=== PATIENT | female | born 1990 | race Caucasian/White ===

== ENCOUNTER 2019-01-17 17:21 | Emergency (ER) | payer OTHER ==
[~2019-01-17] VITALS: Ht 175.3 cm; Wt 73.0 kg
[2019-01-17] MEDS ORDERED: ONDANSETRON 2MG/ML, 2ML ONE (17:38)
--- NOTE | 2019-01-17 17:44 | NUR ---
PT BIB EMS FO OVERDISE OF NARCAN. PT STATES SHE TOOK LIQUID METHADONE FROM SOMEONE. PER BOYFRIEND AT BEDSIDE, PT BECAME LETHARGIC. EMS ON SCENE ADMINISTERED NARCAN INTRANASAL 2 MG. THEN 1 MG IV IN THE FIELD. PT BECAME ALERT. EN ROUTE PT BECAME MORE LETHARGIC AND ANOTHER 0.5 MG NARCAN WAS GIVEN IV APPROX 20 MINS BOOT AND SADDLE REPAIR PERSON. PT ARRIVES A&OX4, NEURO INTACT. BOYFRIEND AT BEDSIDE. CP MONIOTRS IN PLACE. CALL LIGHT IN REACH. WILL CONTINUE T0 MONITOR CLOSELY FOR SIGNS OF DECREASING LOC.
[2019-01-17 17:55] LABS: BASOPHILS # (AUTO) 0.03 x10^3/uL (0-0.1); BASOPHILS % (AUTO) 0 % (0-1); EOSINOPHILS % (AUTO) 0 % (1-7); LYMPHOCYTES # (AUTO) 0.99 x10^3/uL (1-3.4); LYMPHOCYTES % (AUTO) 6 % (22-44); MD NO; MEAN CORPUSCULAR HEMOGLOBIN 33.7 pg (27.0-34.8); MEAN CORPUSCULAR HGB CONC 33.2 g/dL (32.4-35.8); MEAN CORPUSCULAR VOLUME 101.5 fL (80-100); MEAN PLATELET VOLUME 7.4 fL (7.4-10.4); MONOCYTES # (AUTO) 0.76 x10^3/uL (0.2-0.8); MONOCYTES % (AUTO) 5 % (2-9); NEUTROPHILS # (AUTO) 14.84 x10^3/uL (1.8-6.8); NEUTROPHILS % (AUTO) 89 % (42-75); PLATELET COUNT 336 x10^3/uL (130-400); RED BLOOD COUNT 3.67 x10^6/uL (3.82-5.3); RED CELL DISTRIBUTION WIDTH 13.1 % (9.6-15.2)
[2019-01-17] MEDS ORDERED: ONDANSETRON 2MG/ML, 2ML IVPush ONE (18:00)
--- NOTE | 2019-01-17 18:03 | NUR ---
BEDSIDE REPORT FROM TANA MOORE, PT PLACED ON ETCO2 MONITOR
[2019-01-17 18:07] LABS: ANION GAP 13 mmol/L (5-15); CALCIUM 8.2 mg/dL (8.5-10.1); CHLORIDE 110 mmol/L (98-107); CREATININE 0.73 mg/dL (0.55-1.02)
--- NOTE | 2019-01-17 18:38 | NUR ---
PT SLEEPING IN GURNEY, REMOVED OXYGEN AND DROPPED O2 SAT% TO 84, REPLACED O2 AND EDUCATED PT AND PARTNER IN ROOM TO LEAVE ON. VS OTHERWISE STABLE. PT STILL DROWSY. PARTNER AT BEDSIDE, CALL LIGHT WITHIN REACH
--- NOTE | 2019-01-17 19:44 | NUR ---
PT SLEEPING IN GURNEY, OXYGEN REMOVED AGAIN, RA SAT 88%. PT STATES SHE IS FEELING BETTER. BOYFRIEND AT BEDSIDE WATCHING TV
--- NOTE | 2019-01-17 20:43 | NUR ---
PT STATES SHE IS FEELING BETTER, O2 REMOVED TO SEE HOW PT DOES ON RA.
[2019-01-17] MEDS ORDERED: ONDANSETRON ODT 4 MG ONE (20:55)
--- NOTE | 2019-01-17 21:38 | NUR ---
PT RESTING IN GURNEY, AOX4, AWAKE AND WATCHING TV. DOING FINE ON RA. PER MD WATCH UNTIL AFTER 10PM
[2019-01-17 23:19] VITALS: BP 121/74
== END 2019-01-17 23:21 | disposition home or self-care (01) ==
LOC: ED 17:42
DX: T40.3X1A Poisoning by methadone, accidental (unintentional), initial encounter (principal); Y92.89 Other specified places as the place of occurrence of the external cause
CPT/HCPCS: 36415; 80048; 82040; 85025; 93005; 99284

== ENCOUNTER 2019-09-01 09:09 | Outpatient (CLI) | payer OTHER ==
[~2019-09-01 09:09] MED LIST: IBUP-1623 PO; MAGN400O7 PO; ONDA4TAB7 PO; OXYC-302 PO; OXYC-432 PO
[2019-09-01] MEDS ORDERED: OMNIPAQUE 350 MG/ML, 100ML BOTTLE ONE (16:08)
[2019-09-18] MEDS ORDERED: [UNRECOGNIZED DRUG - OTHER] PO (10:37)
[2019-09-18] MEDS ORDERED: [UNRECOGNIZED DRUG - REMARK] PO (10:37)
[2019-09-18] MEDS ORDERED: URIN1STR71 PO (10:37)
[2019-09-18] MEDS ORDERED: GABA300C10 PO (10:37)
[2019-09-18] MEDS ORDERED: tylenol PO (10:37)
[2019-11-02] MEDS ORDERED: APIX5TAB PO (15:35)
[2019-11-02] MEDS ORDERED: CEFD300C37 PO (15:35)
== END 2019-09-01 23:59 | disposition home or self-care (01) ==
LOC: CFH 09:09
PROVIDERS: ATTEND Internal Medicine Gastroenterology
DX: C7A.00 Malignant carcinoid tumor of unspecified site (principal); N13.30 Unspecified hydronephrosis; R59.0 Localized enlarged lymph nodes; R10.30 Lower abdominal pain, unspecified; R11.2 Nausea with vomiting, unspecified; R63.4 Abnormal weight loss; K59.03 Drug induced constipation; D75.89 Other specified diseases of blood and blood-forming organs
CPT/HCPCS: 71260; 74177; Q9967

== ENCOUNTER 2019-09-12 12:29 | Emergency (ER) | payer OTHER ==
[~2019-09-12] VITALS: Ht 180.3 cm; Wt 67.7 kg
[2019-09-12 12:32] VITALS: BP 144/98
--- NOTE | 2019-09-12 12:54 | NUR ---
ASSUMED CARE OF PATIENT. PATIENT REPORTS PELVIC PAIN AND BILATERAL FLANK PAIN. PT WAS RECENTLY DIAGNOSED WITH BLADDER CANCER. PT HAS BEEN ON PERCOCET BUT RAN OUT. PT IS TO SEE A PAIN DOCTOR AND WANTS PAIN MEDS FOR HOME UNTIL SHE CAN GET IN TO SEE HER DOCTOR. FAMILY AT BEDSIDE. VS STABLE WILL CONTINUE TO MONITOR.
== END 2019-09-12 13:29 | disposition home or self-care (01) ==
LOC: ED 13:17
DX: C80.1 Malignant (primary) neoplasm, unspecified (principal); R10.30 Lower abdominal pain, unspecified; Z90.49 Acquired absence of other specified parts of digestive tract
CPT/HCPCS: 99283

== ENCOUNTER → 2019-09-18 | Outpatient (CLI) | payer OTHER ==
[~2019-09-18] MED LIST changes: +GABA300C10 PO; +URIN1STR71 PO; +[UNRECOGNIZED DRUG - OTHER] PO; +[UNRECOGNIZED DRUG - REMARK] PO; +tylenol PO
[2019-09-18 10:42] LABS: INTERNATIONAL NORMALIZED RATIO 1.01 (0.93-1.1); PROTHROMBIN TIME 10.7 Seconds (9.6-11.5)
[2019-09-18 10:46] LABS: ANION GAP 7 mmol/L (5-15); CHLORIDE 106 mmol/L (98-107)
[2019-09-18 10:47] LABS: CREATININE 0.56 mg/dL (0.55-1.02)
[2019-09-18 11:01] LABS: MICROSCOPIC INDICATED
[2019-09-18 11:11] LABS: BASOPHILS # (AUTO) 0.05 x10^3/uL (0-0.1); BASOPHILS % (AUTO) 1 % (0-1); EOSINOPHILS # (AUTO) 0.01 x10^3/uL (0-0.4); EOSINOPHILS % (AUTO) 0 % (1-7); LYMPHOCYTES # (AUTO) 1.14 x10^3/uL (1-3.4); LYMPHOCYTES % (AUTO) 14 % (22-44); MD NO; MEAN CORPUSCULAR HEMOGLOBIN 33.1 pg (27.0-34.8); MEAN CORPUSCULAR HGB CONC 32.5 g/dL (32.4-35.8); MEAN CORPUSCULAR VOLUME 102.1 fL (80-100); MEAN PLATELET VOLUME 7.6 fL (7.4-10.4); MONOCYTES # (AUTO) 0.65 x10^3/uL (0.2-0.8); MONOCYTES % (AUTO) 8 % (2-9); NEUTROPHILS # (AUTO) 6.58 x10^3/uL (1.8-6.8); NEUTROPHILS % (AUTO) 78 % (42-75); PLATELET COUNT 452 x10^3/uL (130-400); RED BLOOD COUNT 4.17 x10^6/uL (3.82-5.3); RED CELL DISTRIBUTION WIDTH 14.8 % (9.6-15.2)
== END | disposition home or self-care (01) ==
LOC: STAR 09:33
PROVIDERS: ATTEND Student in an Organized Health Care Education/Training Program
DX: Z01.812 Encounter for preprocedural laboratory examination (principal); N32.89 Other specified disorders of bladder
CPT/HCPCS: 36415; 80048; 81001; 85025; 85610; 87086

== ENCOUNTER 2019-09-23 13:31 | Day surgery (SDC) | payer OTHER ==
[~2019-09-23] VITALS: Ht 180.3 cm; Wt 64.0 kg
[2019-09-23 14:04] VITALS: BP 148/107
[2019-09-23] MEDS ORDERED: LACTATED RINGERS 1,000 ML IV SCH (14:04)
[2019-09-23 14:25] LABS: HCG UR SG 1.011 (1.003-1.030)
[2019-09-23] MEDS ORDERED: LIDOCAINE-MPF 1%, 2ML INFIL ONE (14:30)
[2019-09-23] MEDS ORDERED: ACETAMINOPHEN 500 MG TABLET PO ONE (14:30)
[2019-09-23] MEDS ORDERED: GABAPENTIN 300 MG CAPSULE PO ONE ×2 (14:30)
[2019-09-23] MEDS ORDERED: GABAPENTIN 300 MG CAPSULE ONE (14:36)
[2019-09-23] MEDS ORDERED: FENTANYL PF 250 MCG/5ML ONE (15:09)
[2019-09-23] MEDS ORDERED: MIDAZOLAM 1 MG/ML, 2ML ONE (15:09)
[2019-09-23] MEDS ORDERED: LIDOCAINE GEL 2%, 5ML ONE (15:12)
[2019-09-23] MEDS ORDERED: FENTANYL PF 100 MCG/2ML ONE ×4 (15:53→18:01)
[2019-09-23] MEDS ORDERED: PROMETHAZINE 25 MG/ML, 1ML IV PRN (16:00)
[2019-09-23] MEDS ORDERED: HALOPERIDOL 5 MG/ML IV PRN (16:00)
[2019-09-23] MEDS ORDERED: OXYcodone 5 MG/5 ML ORAL.SOL UDC PO PRN (16:00)
[2019-09-23] MEDS ORDERED: hydrALAzine 20 MG/ML, 1ML IV PRN (16:00)
[2019-09-23] MEDS ORDERED: ESMOLOL 100 MG/10 ML ONE (16:39)
[2019-09-23] MEDS ORDERED: OPIUM/BELLADONNA SUPP.RECT 16.2-60 MG ONE (16:53)
[2019-09-23] MEDS ORDERED: SUCCINYLCHOLINE 20 MG/ML, 10ML ONE (17:18)
[2019-09-23] MEDS ORDERED: NEOSTIGMINE 1 MG/ML, 10ML ONE (17:18)
[2019-09-23] MEDS ORDERED: CEFAZOLIN 1,000 MG ONE (17:18)
[2019-09-23] MEDS ORDERED: ROCURONIUM 10MG/ML,5ML ONE (17:18)
[2019-09-23] MEDS ORDERED: ONDANSETRON 2MG/ML, 2ML ONE (17:18)
[2019-09-23] MEDS ORDERED: GLYCOPYRROLATE 0.2MG/1ML, 5ML ONE (17:18)
[2019-09-23] MEDS ORDERED: DEXAMETHASONE 4 MG/ML, 1ML ONE (17:18)
[2019-09-23] MEDS ORDERED: PROPOFOL 10 MG/ML, 20ML ONE (17:18)
[2019-09-23] MEDS ORDERED: DIAZEPAM 5 MG/ML, 2ML ONE (17:23)
[2019-09-23] MEDS ORDERED: HYDROmorphone 2 MG/ML, 1ML ONE ×2 (17:23→18:02)
[2019-09-23] MEDS ORDERED: OXYcodone 5 MG/5 ML ORAL.SOL UDC ONE (17:24)
[2019-09-23] MEDS: LABETALOL 5MG/ML, 20ML IV PRN ×2 (17:27→17:50)
[2019-09-23] MEDS: FENTANYL PF 100 MCG/2ML IV PRN ×3 (17:28→18:06)
[2019-09-23] MEDS: HYDROmorphone 2 MG/ML, 1ML IVPush PRN ×4 (17:28→17:59)
[2019-09-23] MEDS ORDERED: MEPERIDINE/PF 25MG/ML,1ML ONE ×2 (17:29→18:01)
[2019-09-23] MEDS: MEPERIDINE/PF 25MG/ML,1ML IVPush PRN ×2 (17:30→18:04)
[2019-09-23] MEDS: DIAZEPAM 5 MG/ML, 2ML IVPush PRN ×2 (17:33→17:46)
[2019-09-23] MEDS ORDERED: hydrALAzine 20 MG/ML, 1ML ONE (18:14)
[2019-09-23] MEDS ORDERED: OMNIPAQUE 350 MG/ML, 50 ML BOTTLE ONE (18:23)
== END 2019-09-23 19:55 | disposition home or self-care (01) ==
LOC: OR 13:31 → 4NE 18:55 → OR 19:55
PROVIDERS: ATTEND Student in an Organized Health Care Education/Training Program
DX: R31.0 Gross hematuria (principal); C67.9 Malignant neoplasm of bladder, unspecified; C79.9 Secondary malignant neoplasm of unspecified site; N13.30 Unspecified hydronephrosis; N32.89 Other specified disorders of bladder; Z72.89 Other problems related to lifestyle
CPT/HCPCS: 52240; 52332; 74420; 81025; 88305; 88307; C2617; J0330; J0360; J0690; J1100; J1170; J2175; J2250; J2405; J2704; J2710; J3010; J3360; J7120; Q9967; G0378

== ENCOUNTER 2019-10-09 12:19 | Outpatient (CLI) | payer OTHER ==
[2019-10-09] MEDS ORDERED: ACET-1600 PO (12:58)
[2019-10-09] MEDS ORDERED: IBUP-1223 PO (12:58)
== END 2019-10-09 23:59 | disposition home or self-care (01) ==
LOC: STAR 12:19
PROVIDERS: ATTEND Internal Medicine
DX: Z02.9 Encounter for administrative examinations, unspecified (principal)

== ENCOUNTER 2019-10-16 09:01 | Day surgery (SDC) | payer OTHER ==
[~2019-10-16] VITALS: Ht 175.3 cm; Wt 59.9 kg
[~2019-10-16 09:01] MED LIST changes: +ACET-1600 PO; +IBUP-1223 PO
[2019-10-16 09:23] VITALS: BP 137/94
[2019-10-16] MEDS ORDERED: OXYC-307 PO (09:27)
[2019-10-16] MEDS ORDERED: LACTATED RINGERS 1,000 ML IV SCH (09:41)
[2019-10-16 09:46] LABS: HCG UR SG 1.013 (1.003-1.030)
[2019-10-16] MEDS ORDERED: MIDAZOLAM 1 MG/ML, 2ML ONE (10:52)
[2019-10-16] MEDS ORDERED: FENTANYL PF 100 MCG/2ML ONE ×4 (10:57→11:55)
[2019-10-16] MEDS ORDERED: LABETALOL 5MG/ML, 20ML IV PRN (11:00)
[2019-10-16] MEDS ORDERED: HALOPERIDOL 5 MG/ML IV PRN (11:00)
[2019-10-16] MEDS ORDERED: HYDROmorphone 2 MG/ML, 1ML IVPush PRN (11:00)
[2019-10-16] MEDS ORDERED: hydrALAzine 20 MG/ML, 1ML IV PRN (11:00)
[2019-10-16] MEDS ORDERED: OXYcodone 5 MG/5 ML ORAL.SOL UDC PO PRN (11:00)
[2019-10-16] MEDS ORDERED: MEPERIDINE/PF 25MG/ML,1ML IVPush PRN (11:00)
[2019-10-16] MEDS ORDERED: PROMETHAZINE 25 MG/ML, 1ML IV PRN (11:00)
[2019-10-16] MEDS ORDERED: FENTANYL PF 100 MCG/2ML IV PRN (11:00)
[2019-10-16] MEDS ORDERED: ONDANSETRON 2MG/ML, 2ML ONE (11:42)
[2019-10-16] MEDS ORDERED: SUCCINYLCHOLINE 20 MG/ML, 10ML ONE (11:42)
[2019-10-16] MEDS ORDERED: NEOSTIGMINE 1 MG/ML, 10ML ONE (11:42)
[2019-10-16] MEDS ORDERED: CEFAZOLIN 1,000 MG ONE (11:42)
[2019-10-16] MEDS ORDERED: ROCURONIUM 10MG/ML,5ML ONE (11:42)
[2019-10-16] MEDS ORDERED: DEXAMETHASONE 4 MG/ML, 1ML ONE (11:42)
[2019-10-16] MEDS ORDERED: GLYCOPYRROLATE 0.2MG/1ML, 5ML ONE (11:42)
[2019-10-16] MEDS ORDERED: PROPOFOL 10 MG/ML, 20ML ONE (11:42)
[2019-10-16] MEDS ORDERED: OXYcodone 5 MG/5 ML ORAL.SOL UDC ONE (11:56)
== END 2019-10-16 13:45 | disposition home or self-care (01) ==
LOC: OUT 09:01
PROVIDERS: ATTEND Internal Medicine
DX: R59.0 Localized enlarged lymph nodes (principal); C77.1 Secondary and unspecified malignant neoplasm of intrathoracic lymph nodes; C67.9 Malignant neoplasm of bladder, unspecified; F17.210 Nicotine dependence, cigarettes, uncomplicated; Z79.891 Long term (current) use of opiate analgesic; Z79.899 Other long term (current) drug therapy
CPT/HCPCS: 31652; 71045; 81025; 88172; 88173; 88305; J0330; J0690; J1100; J2250; J2405; J2704; J3010; J7120; 31625; J2710

== ENCOUNTER 2019-10-27 07:33 | Day surgery (SDC) | payer OTHER ==
[~2019-10-27] VITALS: Ht 175.3 cm; Wt 60.0 kg
[~2019-10-27 07:33] MED LIST changes: +OXYC-307 PO
[2019-10-27 08:04] VITALS: BP 132/89
[2019-10-27] MEDS ORDERED: CEFAZOLIN PMX 1GM/50ML 50 ML ONE (08:08)
[2019-10-27] MEDS ORDERED: LIDOCAINE 1%, 20ML ONE (09:32)
[2019-10-27] MEDS ORDERED: FENTANYL PF 100 MCG/2ML ONE (09:38)
[2019-10-27] MEDS ORDERED: MIDAZOLAM 1 MG/ML, 5ML ONE ×2 (09:38→09:39)
[2019-10-27] MEDS ORDERED: FLUMAZENIL 0.1 MG/1 ML, 5ML ONE (09:39)
[2019-10-27] MEDS ORDERED: NALOXONE 1 MG/ML, 2ML ONE (09:39)
[2019-10-27] MEDS ORDERED: DIPHENHYDRAMINE 50 MG/ML, 1ML ONE (10:32)
[2019-10-27] MEDS ORDERED: SODIUM CHLORIDE 0.9% 1,000 ML IV SCH (11:41)
[2019-10-27] MEDS ORDERED: CEFAZOLIN PMX 1GM/50ML 50 ML IV ONE (12:00)
[2019-10-27] MEDS ORDERED: ONDA4TAB7 PO (17:38)
[2019-10-27] MEDS ORDERED: PROC10TA2 PO (17:38)
== END 2019-10-27 15:15 | disposition home or self-care (01) ==
LOC: OUT 07:33
PROVIDERS: ATTEND Internal Medicine
DX: C48.2 Malignant neoplasm of peritoneum, unspecified (principal); F17.210 Nicotine dependence, cigarettes, uncomplicated; Z79.899 Other long term (current) drug therapy; Z72.89 Other problems related to lifestyle; Z83.3 Family history of diabetes mellitus
CPT/HCPCS: 36561; 71045; 77001; 99156; 99157; J0690; J1200; J1642; J2250; J3010; J7030; J2310

== ENCOUNTER 2019-11-08 07:30 | Emergency (ER) | payer OTHER ==
[~2019-11-08] VITALS: Ht 172.7 cm; Wt 62.0 kg
[~2019-11-08 07:30] MED LIST changes: +APIX5TAB PO; +CEFD300C37 PO; +PROC10TA2 PO
--- NOTE | 2019-11-08 07:48 | NUR ---
PT DENIES CP, SOB. PT REPORTS THAT HER HR IS USUALLY FAST AND SHE IS ON MEDICINE FOR IT BUT HAS NOT TAKEN IT YET. PT DENIES FEVERS OR CHILLS.
--- NOTE | 2019-11-08 08:05 | NUR ---
PT BROUGHT BACK FROM TRIAGE WITH CHIEF COMPLAINT OF RIGHT NEPHROSTOMY LEAKING. PLACED ABOUT ONE WEEK AGO AND PT STATES SHE IS UNSURE OF CARE NEEDED FOR THEM. HASNT HAD A FOLLOW UP WITH UROLOGIST YET. PT DENIES CP, N/V, COUGH, FEVER.
--- NOTE | 2019-11-08 08:30 | NUR ---
URINE COLLECTED AND SENT TO LAB. PT RESTING IN BED
[2019-11-08 08:32] LABS: BASOPHILS # (AUTO) 0.09 x10^3/uL (0-0.1); BASOPHILS % (AUTO) 1 % (0-1); EOSINOPHILS # (AUTO) 0.07 x10^3/uL (0-0.4); EOSINOPHILS % (AUTO) 1 % (1-7); LYMPHOCYTES # (AUTO) 1.47 x10^3/uL (1-3.4); LYMPHOCYTES % (AUTO) 16 % (22-44); MD NO; MEAN CORPUSCULAR HEMOGLOBIN 30.9 pg (27.0-34.8); MEAN CORPUSCULAR HGB CONC 32.7 g/dL (32.4-35.8); MEAN CORPUSCULAR VOLUME 94.5 fL (80-100); MEAN PLATELET VOLUME 6.5 fL (7.4-10.4); MONOCYTES # (AUTO) 0.14 x10^3/uL (0.2-0.8); MONOCYTES % (AUTO) 2 % (2-9); NEUTROPHILS # (AUTO) 7.61 x10^3/uL (1.8-6.8); NEUTROPHILS % (AUTO) 81 % (42-75); PLATELET COUNT 449 x10^3/uL (130-400); RED BLOOD COUNT 2.99 x10^6/uL (3.82-5.3); RED CELL DISTRIBUTION WIDTH 16.5 % (9.6-15.2)
[2019-11-08 08:36] LABS: ANION GAP 11 mmol/L (5-15); CALCIUM 8.5 mg/dL (8.5-10.1); CHLORIDE 96 mmol/L (98-107); CREATININE 1.89 mg/dL (0.55-1.02)
--- NOTE | 2019-11-08 09:23 | NUR ---
PT RESTING IN BED, CALL LIGHT IN REACH
[2019-11-08 09:40] LABS: CULTURE INDICATED? YES; MICROSCOPIC INDICATED
[2019-11-08 09:41] LABS: CULTURE INDICATED? YES; MICROSCOPIC INDICATED
--- NOTE | 2019-11-08 09:55 | NUR ---
ABISAI YOO AT BEDSIDE TO DISCUSS POC DISCHARGE INSTRUCTIONS REVIEWED Addendum: 11/08/19 at 0959 by [email or web address] NO DISCHARGE
[2019-11-08] MEDS ORDERED: VANCOMYCIN PER PHARMACY MC ONE (10:00)
[2019-11-08] MEDS ORDERED: PIPERACILLIN/TAZO/PMX 3.375GM 50 ML IVPB ONE (10:00)
[2019-11-08] MEDS ORDERED: PIPERACILLIN/TAZO/PMX 3.375GM 0 ML ONE (10:09)
[2019-11-08] MEDS ORDERED: VANCOMYCIN 1,500 MG in SODIUM CHLORIDE 0.9% 250 ML IV ONE (10:30)
[2019-11-08] MEDS ORDERED: SODIUM CHLORIDE 0.9% 1,000ML IVBOLUS ONE (10:30)
--- NOTE | 2019-11-08 10:30 | NUR ---
PT REFUSING ABX, ABISAI YOO NOTIFIED. WILL DISCUSS POC WITH PT.
[2019-11-08 11:03] VITALS: BP 104/73
== END 2019-11-08 11:06 | disposition home or self-care (01) ==
LOC: ED 10:12 → UNDOADMIN 10:30 → EDIP 10:30 → ED 11:06
DX: C67.9 Malignant neoplasm of bladder, unspecified (principal); C78.00 Secondary malignant neoplasm of unspecified lung; T83.032A Leakage of nephrostomy catheter, initial encounter; N17.9 Acute kidney failure, unspecified; E87.1 Hypo-osmolality and hyponatremia; N39.0 Urinary tract infection, site not specified; R00.0 Tachycardia, unspecified; I51.7 Cardiomegaly; D64.9 Anemia, unspecified; Y92.89 Other specified places as the place of occurrence of the external cause
CPT/HCPCS: 36415; 80048; 81001; 83605; 85025; 87040; 87086; 93005; 99284

== ENCOUNTER → 2019-12-01 | Outpatient (CLI) | payer OTHER | END | disposition home or self-care (01) | LOC: WOUND 08:05 | PROVIDERS: ATTEND Nurse Practitioner Family | DX: L97.512 Non-pressure chronic ulcer of other part of right foot with fat layer exposed (principal); L98.492 Non-pressure chronic ulcer of skin of other sites with fat layer exposed; I10 Essential (primary) hypertension; C67.9 Malignant neoplasm of bladder, unspecified; F17.210 Nicotine dependence, cigarettes, uncomplicated; Z79.899 Other long term (current) drug therapy | CPT/HCPCS: 11042; 11045; 99215 ==

== ENCOUNTER 2019-12-08 10:02 | Outpatient (CLI) | payer OTHER | END 2019-12-08 23:59 | disposition home or self-care (01) | LOC: WOUND 10:02 | PROVIDERS: ATTEND Nurse Practitioner Family | DX: L97.512 Non-pressure chronic ulcer of other part of right foot with fat layer exposed (principal); L98.492 Non-pressure chronic ulcer of skin of other sites with fat layer exposed; I10 Essential (primary) hypertension; C67.9 Malignant neoplasm of bladder, unspecified; F17.210 Nicotine dependence, cigarettes, uncomplicated; Z79.899 Other long term (current) drug therapy | CPT/HCPCS: 97597; 97598 ==

== ENCOUNTER → 2019-12-15 | Outpatient (CLI) | payer OTHER | END | disposition home or self-care (01) | LOC: WOUND 09:44 | PROVIDERS: ATTEND Internal Medicine Infectious Disease | DX: L98.495 Non-pressure chronic ulcer of skin of other sites with muscle involvement without evidence of necrosis (principal); S90.821D Blister (nonthermal), right foot, subsequent encounter; I10 Essential (primary) hypertension; C67.9 Malignant neoplasm of bladder, unspecified; F17.210 Nicotine dependence, cigarettes, uncomplicated; F12.90 Cannabis use, unspecified, uncomplicated; E46 Unspecified protein-calorie malnutrition; Z68.21 Body mass index [BMI] 21.0-21.9, adult; Z85.028 Personal history of other malignant neoplasm of stomach; Z79.899 Other long term (current) drug therapy; X58.XXXD Exposure to other specified factors, subsequent encounter | CPT/HCPCS: 97597 ==

== ENCOUNTER → 2019-12-22 | Outpatient (CLI) | payer OTHER | END | disposition home or self-care (01) | LOC: WOUND 09:36 | PROVIDERS: ATTEND Internal Medicine Infectious Disease | DX: L98.495 Non-pressure chronic ulcer of skin of other sites with muscle involvement without evidence of necrosis (principal); S90.821D Blister (nonthermal), right foot, subsequent encounter; I10 Essential (primary) hypertension; C67.9 Malignant neoplasm of bladder, unspecified; F17.210 Nicotine dependence, cigarettes, uncomplicated; F12.90 Cannabis use, unspecified, uncomplicated; E46 Unspecified protein-calorie malnutrition; Z68.21 Body mass index [BMI] 21.0-21.9, adult; Z85.028 Personal history of other malignant neoplasm of stomach; Z79.899 Other long term (current) drug therapy; X58.XXXD Exposure to other specified factors, subsequent encounter | CPT/HCPCS: 97597 ==

== ENCOUNTER → 2019-12-29 | Outpatient (CLI) | payer OTHER | END | disposition home or self-care (01) | LOC: WOUND 08:22 | PROVIDERS: ATTEND Nurse Practitioner Family | DX: L98.495 Non-pressure chronic ulcer of skin of other sites with muscle involvement without evidence of necrosis (principal); S90.821D Blister (nonthermal), right foot, subsequent encounter; I10 Essential (primary) hypertension; C67.9 Malignant neoplasm of bladder, unspecified; F17.210 Nicotine dependence, cigarettes, uncomplicated; F12.90 Cannabis use, unspecified, uncomplicated; E46 Unspecified protein-calorie malnutrition; Z68.21 Body mass index [BMI] 21.0-21.9, adult; Z85.028 Personal history of other malignant neoplasm of stomach; Z79.899 Other long term (current) drug therapy; X58.XXXD Exposure to other specified factors, subsequent encounter | CPT/HCPCS: 97597 ==

== ENCOUNTER → 2020-01-12 | Outpatient (CLI) | payer OTHER | END | disposition home or self-care (01) | LOC: WOUND 09:02 | PROVIDERS: ATTEND Nurse Practitioner Family | DX: L98.495 Non-pressure chronic ulcer of skin of other sites with muscle involvement without evidence of necrosis (principal); S90.821D Blister (nonthermal), right foot, subsequent encounter; I10 Essential (primary) hypertension; C67.9 Malignant neoplasm of bladder, unspecified; F17.210 Nicotine dependence, cigarettes, uncomplicated; F12.90 Cannabis use, unspecified, uncomplicated; E46 Unspecified protein-calorie malnutrition; Z68.21 Body mass index [BMI] 21.0-21.9, adult; Z85.028 Personal history of other malignant neoplasm of stomach; Z79.899 Other long term (current) drug therapy; X58.XXXD Exposure to other specified factors, subsequent encounter | CPT/HCPCS: 97597 ==

== ENCOUNTER 2020-01-22 08:50 | Outpatient (CLI) | payer OTHER ==
[2020-01-22] MEDS ORDERED: OMNIPAQUE 350 MG/ML, 100ML BOTTLE ONE (13:00)
[2020-02-22] MEDS ORDERED: OMNIPAQUE 350 MG/ML, 100ML BOTTLE ONE (13:00)
== END 2020-01-22 23:59 | disposition home or self-care (01) ==
LOC: CFH 08:50
PROVIDERS: ATTEND Internal Medicine
DX: C18.1 Malignant neoplasm of appendix (principal); M48.55XA Collapsed vertebra, not elsewhere classified, thoracolumbar region, initial encounter for fracture; I51.7 Cardiomegaly; J81.1 Chronic pulmonary edema; R59.0 Localized enlarged lymph nodes
CPT/HCPCS: 71260; 74177; Q9967

== ENCOUNTER 2020-01-26 09:43 | Outpatient (CLI) | payer OTHER | END 2020-01-26 23:59 | disposition home or self-care (01) | LOC: WOUND 09:43 | PROVIDERS: ATTEND Nurse Practitioner Family | DX: S90.821D Blister (nonthermal), right foot, subsequent encounter (principal); I10 Essential (primary) hypertension; C67.9 Malignant neoplasm of bladder, unspecified; F17.210 Nicotine dependence, cigarettes, uncomplicated; F12.90 Cannabis use, unspecified, uncomplicated; E46 Unspecified protein-calorie malnutrition; Z85.028 Personal history of other malignant neoplasm of stomach; Z79.899 Other long term (current) drug therapy; X58.XXXD Exposure to other specified factors, subsequent encounter; Z68.1 Body mass index [BMI] 19.9 or less, adult | CPT/HCPCS: 99213 ==

== ENCOUNTER 2020-02-01 06:52 | Outpatient (CLI) | payer OTHER ==
[2020-02-01] MEDS ORDERED: GADOTERATE 7.5 MMOL/15 ML SYR ONE (14:53)
== END 2020-02-01 23:59 | disposition home or self-care (01) ==
LOC: RAD 06:52
PROVIDERS: ATTEND Internal Medicine
DX: C18.1 Malignant neoplasm of appendix (principal); C79.51 Secondary malignant neoplasm of bone; M51.37 Other intervertebral disc degeneration, lumbosacral region; M51.24 Other intervertebral disc displacement, thoracic region; M48.07 Spinal stenosis, lumbosacral region; M84.48XA Pathological fracture, other site, initial encounter for fracture; J90 Pleural effusion, not elsewhere classified
CPT/HCPCS: 72157; 72158; A9575

== ENCOUNTER 2020-02-02 13:19 | Outpatient (CLI) | payer OTHER | END 2020-02-02 23:59 | disposition home or self-care (01) | LOC: RAD 13:19 | PROVIDERS: ATTEND Internal Medicine | DX: Z02.9 Encounter for administrative examinations, unspecified (principal) ==

== ENCOUNTER → 2020-02-04 | Outpatient (CLI) | payer OTHER ==
[~2020-02-04] MED LIST changes: +GADOTERATE 7.5 MMOL/15 ML SYR ONE
== END | disposition home or self-care (01) ==
LOC: RAD 09:28
PROVIDERS: ATTEND Internal Medicine
DX: C18.1 Malignant neoplasm of appendix (principal); N13.4 Hydroureter
CPT/HCPCS: 78306; A9503; A9575

== ENCOUNTER 2020-04-29 11:46 | Outpatient (CLI) | payer OTHER ==
[~2020-04-29 11:46] MED LIST changes: -GADOTERATE 7.5 MMOL/15 ML SYR ONE; -OXYC-432 PO; +OXYC1TAB18 PO
[2020-04-29] MEDS ORDERED: OMNIPAQUE 350 MG/ML, 100ML BOTTLE ONE (13:00)
[2020-05-06] MEDS ORDERED: calcium PO (09:06)
[2020-05-06] MEDS ORDERED: NALO12.5 PO (09:06)
[2020-05-06] MEDS ORDERED: OLAN5TAB9 PO (09:06)
[2020-05-06] MEDS ORDERED: APIX5TAB PO (09:06)
== END 2020-04-29 23:59 | disposition home or self-care (01) ==
LOC: CFH 11:46
PROVIDERS: ATTEND Internal Medicine
DX: C18.1 Malignant neoplasm of appendix (principal); C79.51 Secondary malignant neoplasm of bone; C79.89 Secondary malignant neoplasm of other specified sites; R59.0 Localized enlarged lymph nodes; N13.30 Unspecified hydronephrosis
CPT/HCPCS: 71260; 74177; Q9967

== ENCOUNTER → 2020-05-06 | Outpatient (CLI) | payer OTHER ==
[~2020-05-06] MED LIST changes: +CIPR500T3 PO; +FENTANYL PATCH TD; +NALO12.5 PO; +OLAN5TAB9 PO; +OXYC15TA3 PO; +calcium PO
== END | disposition home or self-care (01) ==
LOC: STAR 08:01
PROVIDERS: ATTEND Student in an Organized Health Care Education/Training Program
DX: Z01.812 Encounter for preprocedural laboratory examination (principal); Z20.828 Contact with and (suspected) exposure to other viral communicable diseases; C79.9 Secondary malignant neoplasm of unspecified site
CPT/HCPCS: 36415; 87635

== ENCOUNTER 2020-05-10 13:08 | Day surgery (SDC) | payer OTHER ==
[~2020-05-10] VITALS: Ht 175.3 cm; Wt 61.4 kg
[~2020-05-10 13:08] MED LIST changes: -CIPR500T3 PO; -FENTANYL PATCH TD; -OXYC15TA3 PO
[2020-05-10] MEDS ORDERED: CHLORHEXIDINE 15 ML UDC MM STA (13:21)
[2020-05-10] MEDS ORDERED: LACTATED RINGERS 1,000 ML IV SCH (13:25)
[2020-05-10 13:44] LABS: HCG UR SG 1.018 (1.003-1.030)
[2020-05-10] MEDS ORDERED: OXYC15TA3 PO (14:04)
[2020-05-10] MEDS ORDERED: CIPR500T3 PO (14:04)
[2020-05-10] MEDS ORDERED: FENTANYL PATCH TD (14:04)
[2020-05-10] MEDS ORDERED: FENTANYL PF 250 MCG/5ML ONE (14:56)
[2020-05-10] MEDS ORDERED: PROPOFOL 50 ML ONE (14:56)
[2020-05-10] MEDS ORDERED: ONDANSETRON 2MG/ML, 2ML ONE (14:56)
[2020-05-10] MEDS ORDERED: CEFAZOLIN 1,000 MG ONE (14:56)
[2020-05-10] MEDS ORDERED: MIDAZOLAM 1 MG/ML, 2ML ONE (14:56)
[2020-05-10] MEDS ORDERED: PROMETHAZINE 25 MG/ML, 1ML IVPush PRN (15:30)
[2020-05-10] MEDS ORDERED: OXYcodone 5 MG/5 ML ORAL.SOL UDC PO PRN (15:30)
[2020-05-10] MEDS ORDERED: EPHEDRINE 50 MG/ML, 1ML IM PRN (15:30)
[2020-05-10] MEDS ORDERED: FENTANYL PF 100 MCG/2ML IV PRN (15:30)
[2020-05-10] MEDS ORDERED: DIAZEPAM 5 MG/ML, 2ML IVPush PRN (15:30)
[2020-05-10] MEDS ORDERED: DIPHENHYDRAMINE 50 MG/ML, 1ML IVPush PRN (15:30)
[2020-05-10] MEDS ORDERED: EPHEDRINE 50 MG/ML, 1ML IVPush PRN (15:30)
[2020-05-10] MEDS ORDERED: ONDANSETRON 2MG/ML, 2ML IVPush PRN (15:30)
[2020-05-10] MEDS ORDERED: HYDROmorphone 1 MG/ML, 1ML INJ IVPush PRN (15:30)
[2020-05-10] MEDS ORDERED: MEPERIDINE/PF 25MG/0.5ML IVPush PRN (15:30)
[2020-05-10] MEDS ORDERED: LABETALOL 5MG/ML, 20ML IV PRN (15:30)
[2020-05-10] MEDS ORDERED: MEPERIDINE/PF 25MG/ML,1ML ONE (15:53)
== END 2020-05-10 16:50 | disposition home or self-care (01) ==
LOC: OR 13:08
PROVIDERS: ATTEND Student in an Organized Health Care Education/Training Program
DX: N13.5 Crossing vessel and stricture of ureter without hydronephrosis (principal); C79.11 Secondary malignant neoplasm of bladder; C34.90 Malignant neoplasm of unspecified part of unspecified bronchus or lung; C80.1 Malignant (primary) neoplasm, unspecified; F12.90 Cannabis use, unspecified, uncomplicated; F17.210 Nicotine dependence, cigarettes, uncomplicated; Z98.890 Other specified postprocedural states; Z79.899 Other long term (current) drug therapy; Z79.01 Long term (current) use of anticoagulants; Z72.89 Other problems related to lifestyle; Z83.3 Family history of diabetes mellitus
CPT/HCPCS: 52332; 74018; 81025; C1769; C2617; J0690; J2175; J2250; J2405; J2704; J3010; J7120; 76000

== ENCOUNTER 2020-05-13 10:54 | Day surgery (SDC) | payer OTHER ==
[~2020-05-13] VITALS: Ht 175.3 cm; Wt 65.8 kg
[~2020-05-13 10:54] MED LIST changes: +CIPR500T3 PO; +FENTANYL PATCH TD; +OXYC15TA3 PO
[2020-05-13] MEDS ORDERED: SODIUM CHLORIDE 0.9% 1,000 ML IV SCH (11:37)
[2020-05-13] MEDS ORDERED: CEFAZOLIN PMX 1GM/50ML 50 ML ONE (11:40)
[2020-05-13 11:56] VITALS: BP 105/70
[2020-05-13] MEDS ORDERED: CEFAZOLIN PMX 1GM/50ML 50 ML IV ONE (12:00)
[2020-05-13] MEDS ORDERED: PLEASE ENTER HEIGHT AND WEIGHT MC SCH (12:00)
[2020-05-13] MEDS ORDERED: LIDOCAINE 1%, 20ML ONE (12:17)
[2020-05-13] MEDS ORDERED: NALOXONE 1 MG/ML, 2ML ONE (12:51)
[2020-05-13] MEDS ORDERED: FENTANYL PF 100 MCG/2ML ONE (12:51)
[2020-05-13] MEDS ORDERED: FLUMAZENIL 0.1 MG/1 ML, 5ML ONE (12:51)
[2020-05-13] MEDS ORDERED: MIDAZOLAM 1 MG/ML, 5ML ONE ×2 (12:51)
== END 2020-05-13 14:45 | disposition home or self-care (01) ==
LOC: OUT 10:54
PROVIDERS: ATTEND Internal Medicine
DX: C18.1 Malignant neoplasm of appendix (principal); C79.51 Secondary malignant neoplasm of bone; C79.89 Secondary malignant neoplasm of other specified sites; G89.3 Neoplasm related pain (acute) (chronic); N13.30 Unspecified hydronephrosis; F12.10 Cannabis abuse, uncomplicated; R80.9 Proteinuria, unspecified; Z79.01 Long term (current) use of anticoagulants; Z86.711 Personal history of pulmonary embolism
CPT/HCPCS: 36561; 76937; 77001; 99156; 99157; C1788; C1894; J0690; J1642; J2250; J3010; J7030; J2310

== ENCOUNTER → 2020-09-01 | Outpatient (CLI) | payer OTHER ==
[~2020-09-01] MED LIST changes: +FENT1PAT76 TP; -NALO12.5 PO; +NALO12.52 PO
[2020-09-01 10:26] LABS: INTERNATIONAL NORMALIZED RATIO 0.98 (0.93-1.1); PROTHROMBIN TIME 10.4 Seconds (9.6-11.5)
[2020-09-01 10:28] LABS: ANION GAP 3 mmol/L (5-15); CALCIUM 8.8 mg/dL (8.5-10.1); CHLORIDE 109 mmol/L (98-107)
[2020-09-01 10:33] LABS: BASOPHILS % (AUTO) 1 % (0-1); EOSINOPHILS % (AUTO) 3 % (1-7); LYMPHOCYTES % (AUTO) 26 % (22-44); MEAN CORPUSCULAR HEMOGLOBIN 30.2 pg (27.0-34.8); MEAN CORPUSCULAR HGB CONC 32.3 g/dL (32.4-35.8); MEAN PLATELET VOLUME 6.2 fL (7.4-10.4); MONOCYTES % (AUTO) 11 % (2-9); NEUTROPHILS % (AUTO) 58 % (42-75); PLATELET COUNT 365 x10^3/uL (130-400); RED BLOOD COUNT 3.35 x10^6/uL (3.82-5.3); RED CELL DISTRIBUTION WIDTH 16.8 % (9.6-15.2)
[2020-09-01 10:37] LABS: MD NO
== END | disposition home or self-care (01) ==
LOC: STAR 08:57
PROVIDERS: ATTEND Student in an Organized Health Care Education/Training Program
DX: Z01.812 Encounter for preprocedural laboratory examination (principal); N13.30 Unspecified hydronephrosis; Z20.828 Contact with and (suspected) exposure to other viral communicable diseases
CPT/HCPCS: 80048; 85025; 85610; 87635

== ENCOUNTER 2020-09-07 14:14 | Day surgery (SDC) | payer OTHER ==
[~2020-09-07] VITALS: Ht 177.8 cm; Wt 68.7 kg
[2020-09-07 14:46] VITALS: BP 117/80
[2020-09-07] MEDS ORDERED: SULF1TAB23 PO (14:49)
[2020-09-07] MEDS ORDERED: CHLORHEXIDINE 15 ML UDC MM ONE (15:00)
[2020-09-07] MEDS ORDERED: LACTATED RINGERS 1,000 ML IV SCH (15:00)
[2020-09-07 15:11] LABS: HCG UR SG 1.008 (1.003-1.030); MICROSCOPIC AUTO
[2020-09-07] MEDS ORDERED: MIDAZOLAM 1 MG/ML, 2ML ONE (15:45)
[2020-09-07] MEDS ORDERED: FENTANYL PF 250 MCG/5ML ONE (16:07)
[2020-09-07] MEDS ORDERED: CEFAZOLIN 1,000 MG ONE ×2 (16:22)
[2020-09-07] MEDS ORDERED: PROPOFOL 10 MG/ML, 20ML ONE (16:23)
[2020-09-07] MEDS ORDERED: ACETAMINOPHEN 325 MG TABLET PO PRN (17:00)
[2020-09-07] MEDS ORDERED: MEPERIDINE/PF 25MG/0.5ML IVPush PRN (17:00)
[2020-09-07] MEDS ORDERED: LABETALOL 5MG/ML, 20ML IV PRN (17:00)
[2020-09-07] MEDS ORDERED: OXYcodone 5 MG/5 ML ORAL.SOL UDC PO PRN (17:00)
[2020-09-07] MEDS ORDERED: MIDAZOLAM 1 MG/ML, 2ML IV PRN (17:00)
[2020-09-07] MEDS ORDERED: PROMETHAZINE 25 MG/ML, 1ML IVPush PRN (17:00)
[2020-09-07] MEDS ORDERED: hydrALAzine 20 MG/ML, 1ML IV PRN (17:00)
[2020-09-07] MEDS ORDERED: LORazepam 2 MG/ML, 1ML IVPush PRN (17:00)
[2020-09-07] MEDS ORDERED: ONDANSETRON 2MG/ML, 2ML IVPush PRN (17:00)
[2020-09-07] MEDS ORDERED: DEXAMETHASONE 4 MG/ML, 1ML ONE (17:13)
[2020-09-07] MEDS ORDERED: ONDANSETRON 2MG/ML, 2ML ONE (17:13)
[2020-09-07] MEDS ORDERED: FENTANYL PF 100 MCG/2ML ONE ×2 (17:17→17:40)
[2020-09-07] MEDS ORDERED: MEPERIDINE/PF 25MG/ML,1ML ONE (17:28)
[2020-09-07] MEDS ORDERED: OXYcodone 5 MG/5 ML ORAL.SOL UDC ONE (17:41)
[2020-09-07] MEDS: FENTANYL PF 100 MCG/2ML IV PRN ×2 (17:44→17:50)
[2020-09-07] MEDS ORDERED: HYDROmorphone 1 MG/ML, 1ML INJ ONE (17:55)
[2020-09-07] MEDS: HYDROmorphone 1 MG/ML, 1ML INJ IVPush PRN ×2 (17:57→18:03)
== END 2020-09-07 18:53 | disposition home or self-care (01) ==
LOC: OR 14:14
PROVIDERS: ATTEND Student in an Organized Health Care Education/Training Program
DX: T83.192A Other mechanical complication of indwelling ureteral stent, initial encounter (principal); C7A.098 Malignant carcinoid tumors of other sites; N13.1 Hydronephrosis with ureteral stricture, not elsewhere classified; R33.9 Retention of urine, unspecified; F17.210 Nicotine dependence, cigarettes, uncomplicated; Z79.01 Long term (current) use of anticoagulants; Z79.899 Other long term (current) drug therapy; Z83.3 Family history of diabetes mellitus; Y83.8 Other surgical procedures as the cause of abnormal reaction of the patient, or of later complication, without mention of misadventure at the time of the procedure
CPT/HCPCS: 52332; 74018; 81001; 81025; 87077; 87086; 87186; C1769; C2617; J0690; J1100; J1170; J1642; J2175; J2250; J2405; J2704; J3010; J7120; 76000

== ENCOUNTER 2020-10-16 12:45 | Inpatient (IN) | payer OTHER ==
[~2020-10-16] VITALS: Ht 177.8 cm; Wt 69.3 kg
[~2020-10-16 12:45] MED LIST changes: -CIPR500T3 PO; +CIPR500T4 PO; -OXYC-302 PO; -OXYC-307 PO; +OXYC-380 PO; +OXYC1TAB14 PO; +SULF1TAB23 PO
[2020-10-16] MEDS ORDERED: SODIUM CHLORIDE 0.9% 1,000ML IVBOLUS ONE ×2 (13:30→15:30)
[2020-10-16] MEDS ORDERED: MORPHINE SULFATE 4 MG/ML, 1ML IVPush PRN (13:30)
[2020-10-16] MEDS ORDERED: SODIUM CHLORIDE FLUSH 10ML SYR IVF ONE (13:30)
[2020-10-16] MEDS ORDERED: MORPHINE SULFATE 4 MG/ML, 1ML ONE (13:32)
[2020-10-16 13:42] LABS: MEAN CORPUSCULAR HEMOGLOBIN 28.4 pg (27.0-34.8); MEAN CORPUSCULAR HGB CONC 33.1 g/dL (32.4-35.8); MEAN PLATELET VOLUME 6.5 fL (7.4-10.4); PLATELET COUNT 177 x10^3/uL (130-400); RED BLOOD COUNT 3.56 x10^6/uL (3.82-5.3); RED CELL DISTRIBUTION WIDTH 18.5 % (9.6-15.2)
[2020-10-16 13:50] LABS: ALANINE AMINOTRANSFERASE 17 U/L (12-78); ALBUMIN 2.3 g/dL (3.4-5.0); ANION GAP 10 mmol/L (5-15); CHLORIDE 103 mmol/L (98-107); CREATININE 3.09 mg/dL (0.55-1.02)
[2020-10-16 13:52] LABS: ALKALINE PHOSPHATASE 140 U/L (45-117); BILIRUBIN,TOTAL 0.6 mg/dL (0.2-1.0); TOTAL PROTEIN 6.3 g/dL (6.4-8.2)
--- NOTE | 2020-10-16 13:59 | NUR ---
pt to ct scan
[2020-10-16 14:08] LABS: MD YES
[2020-10-16 14:10] LABS: <RBC MORPHOLOGY> NORMAL; BAND#(MANUAL) 0.31 x10^3/uL; BANDS%(MANUAL) 3 % (0-7); EOS% (MANUAL) 1 % (1-7); LYMPH#(MANUAL) 0.52 x10^3/uL (1-3.4); LYMPHS% (MANUAL) 5 % (22-44); SEG#(MANUAL) 9.37 x10^3/uL (1.8-6.8); SEGS% (MANUAL) 91 % (42-75)
[2020-10-16 14:11] LABS: <PLATELET ESTIMATE> ADEQUATE; <PLT MORPHOLOGY> NORMAL PLT MORPH; TOXIC GRAN 2+
--- NOTE | 2020-10-16 14:30 | NUR ---
returned from ct scan
--- NOTE | 2020-10-16 14:50 | NUR ---
pt ambulated to br for urine collection
[2020-10-16 14:57] LABS: MICROSCOPIC INDICATED
--- NOTE | 2020-10-16 15:14 | NUR ---
Report from OSCAR Shepherd. Assumed care.
--- NOTE | 2020-10-16 15:17 | NUR ---
Dr. Kauffman at bedside.
--- NOTE | 2020-10-16 15:24 | NUR ---
Pt will be admitted. Rocephin ordered- waiting to administer until blood cultures are drawn.
[2020-10-16] MEDS ORDERED: CEFTRIAXONE PMX 1GM/50ML 50 ML IVPB ONE (15:30)
[2020-10-16] MEDS ORDERED: CEFTRIAXONE PMX 1GM/50ML 50 ML ONE (15:33)
--- NOTE | 2020-10-16 15:35 | NUR ---
Blood cultures drawn, Rocephin infusing.
--- NOTE | 2020-10-16 15:46 | NUR ---
Dr. Stoll at bedside. Stent exchange was done in [facility]. Pt reporting pain in right flank. Pt reports she has been producing less urine than usual. Pt reports she "just got over bacterial pneumonia and just finished antibiotics yesterday"- was not hospitalized for it. Pt reports low energy over the last few days. Pt's last chemo was last saturday, reports she gets it every other week through her port. Pt reports she takes eliquis, oxybutinin, oxycodone, fentanyl patch. Pt reports port was placed 6 months ago. Pt reports she smokes 3 cigarrettes per day. Does not drink or use marijuana. Pt has elevated kidney function since stent exchange in august, likely related to sepsis or infection- urologist will see pt in hospital. BP currently 88/53- pt reports her BP is normally low. Dr. Stoll reports ureter is dilated.
--- NOTE | 2020-10-16 16:04 | NUR ---
THROUGHPUT RN: REPORT GIVEN TO FABRIZIO MOORE.
--- NOTE | 2020-10-16 16:12 | NUR ---
Pt transported upstairs.
[2020-10-16 16:18] LABS: HCT (SEDRATE) 30.5 % (34.6-47.8)
[2020-10-16] MEDS ORDERED: OXYcodone IR 5MG TABLET PO PRN (16:30)
[2020-10-16] MEDS ORDERED: VANCOMYCIN PER PHARMACY MC PRN (16:30)
[2020-10-16] MEDS ORDERED: MELATONIN 5 MG TABLET PO PRN (16:30)
[2020-10-16] MEDS ORDERED: FENTANYL 75 MCG PATCH TD SCH (16:30)
[2020-10-16] MEDS: LACTATED RINGERS 1,000 ML IV SCH (16:30)
[2020-10-16] MEDS ORDERED: ACETAMINOPHEN 325 MG TABLET PO PRN (16:30)
[2020-10-16 16:40] LABS: FREE T4 (FREE THYROXINE) 1.99 ng/dL (0.76-1.46)
[2020-10-16] MEDS: morphine SULFATE 10 MG/ML, 1ML IVPush PRN ×2 (16:43→20:24)
[2020-10-16 17:03] VITALS: BP 94/58
[2020-10-16] MEDS ORDERED: VANCOMYCIN PMX 1GM/200ML 200 ML IVPB ONE (17:30)
[2020-10-16] MEDS: ONDANSETRON 2MG/ML, 2ML IVPush PRN (17:32)
[2020-10-16] MEDS: ERTAPENEM 0.5 GM in SODIUM CHLORIDE 0.9% 50 ML IV SCH (18:00)
[2020-10-16] MEDS: NICOTINE 7 MG/24 HR PATCH.TD24 TD SCH (18:00)
[2020-10-16] MEDS ORDERED: VANCOMYCIN 1,300 MG in SODIUM CHLORIDE 0.9% 250 ML IV ONE (18:30)
[2020-10-16 19:10] VITALS: BP 80/48
[2020-10-16 20:16] VITALS: BP 86/51
[2020-10-17 00:03] VITALS: BP 89/55
[2020-10-17] MEDS: morphine SULFATE 10 MG/ML, 1ML IVPush PRN (00:09)
[2020-10-17] MEDS: ONDANSETRON 2MG/ML, 2ML IVPush PRN (00:10)
[2020-10-17] MEDS: LACTATED RINGERS 1,000 ML IV SCH (04:00)
[2020-10-17 04:48] LABS: MEAN CORPUSCULAR HEMOGLOBIN 28.4 pg (27.0-34.8); MEAN CORPUSCULAR HGB CONC 33.1 g/dL (32.4-35.8); MEAN PLATELET VOLUME 6.7 fL (7.4-10.4); PLATELET COUNT 111 x10^3/uL (130-400); RED BLOOD COUNT 3.05 x10^6/uL (3.82-5.3); RED CELL DISTRIBUTION WIDTH 18.6 % (9.6-15.2)
[2020-10-17 04:56] LABS: ANION GAP 10 mmol/L (5-15); CALCIUM 7.4 mg/dL (8.5-10.1); CHLORIDE 105 mmol/L (98-107); CREATININE 3.75 mg/dL (0.55-1.02)
[2020-10-17 05:48] LABS: MD YES
[2020-10-17 05:50] LABS: <RBC MORPHOLOGY> NORMAL; BAND#(MANUAL) 0.56 x10^3/uL; BANDS%(MANUAL) 8 % (0-7); EOS#(MANUAL) 0.07 x10^3/uL (0.0-0.4); EOS% (MANUAL) 1 % (1-7); LYMPH#(MANUAL) 0.21 x10^3/uL (1-3.4); LYMPHS% (MANUAL) 3 % (22-44); MONOS#(MANUAL) 0.07 x10^3/uL (0.3-2.7); MONOS% (MANUAL) 1 % (2-9); SEG#(MANUAL) 6.09 x10^3/uL (1.8-6.8); SEGS% (MANUAL) 87 % (42-75)
[2020-10-17 05:51] LABS: <PLATELET ESTIMATE> DECREASED; <PLT MORPHOLOGY> NORMAL PLT MORPH
[2020-10-17] MEDS ORDERED: SODIUM ZIRCONIUM CYCLOSILICATE 5 GM PO ONE (06:30)
[2020-10-17] MEDS ORDERED: SODIUM CHLORIDE 0.9% 1,000ML IVBOLUS ONE (07:00)
[2020-10-17 07:30] VITALS: BP 90/54
[2020-10-17] MEDS ORDERED: morphine SULFATE 10 MG/ML, 1ML IVPush ONE (07:30)
[2020-10-17 07:51] LABS: D-DIMER (DIC) 4.23 ug/mlFEU (0.00-0.52); PROTIME 16.8 Seconds (9.6-11.5)
[2020-10-17 07:53] LABS: CREATINE KINASE, TOTAL 20 U/L (26-192)
[2020-10-17] MEDS: SODIUM BICARBONATE 8.4% 150 MEQ in DEXTROSE 5% 1,000 ML IV SCH ×2 (08:14→18:00)
[2020-10-17 08:52] VITALS: BP 92/55
[2020-10-17] MEDS: HYDROmorphone 1 MG/ML, 1ML INJ IV PRN ×2 (09:25→09:40)
[2020-10-17 09:49] VITALS: BP 90/52
[2020-10-17] MEDS: MIDODRINE 5 MG TABLET PO SCH ×3 (10:00→21:08)
[2020-10-17] MEDS: OXYBUTYNIN CHLORIDE 5 MG TABLET PO SCH (10:00)
[2020-10-17] MEDS: HYDROmorphone PCA 30 MG/30 ML IV PRN (11:43)
[2020-10-17 13:01] VITALS: BP 93/53
[2020-10-17] MEDS: ERTAPENEM 0.5 GM in SODIUM CHLORIDE 0.9% 50 ML IV SCH (16:14)
[2020-10-17] MEDS: NICOTINE 7 MG/24 HR PATCH.TD24 TD SCH (16:14)
[2020-10-17] MEDS ORDERED: FENTANYL 25 MCG PATCH TD SCH (16:30)
[2020-10-17 18:37] VITALS: BP 93/56
[2020-10-18] VITALS (13 sets, daily range): BP systolic 86–110; BP diastolic 50–72
[2020-10-18] MEDS: SODIUM BICARBONATE 8.4% 150 MEQ in DEXTROSE 5% 1,000 ML IV SCH ×2 (04:24→21:33)
[2020-10-18] MEDS: ONDANSETRON 2MG/ML, 2ML IVPush PRN (04:29)
[2020-10-18 05:07] LABS: ANION GAP 11 mmol/L (5-15); CALCIUM 7.3 mg/dL (8.5-10.1); CHLORIDE 103 mmol/L (98-107)
[2020-10-18 05:10] LABS: CREATININE 4.12 mg/dL (0.55-1.02)
[2020-10-18 06:13] LABS: MEAN CORPUSCULAR HEMOGLOBIN 27.8 pg (27.0-34.8); MEAN CORPUSCULAR HGB CONC 32.9 g/dL (32.4-35.8); MEAN PLATELET VOLUME 6.5 fL (7.4-10.4); PLATELET COUNT 75 x10^3/uL (130-400); RED BLOOD COUNT 2.62 x10^6/uL (3.82-5.3); RED CELL DISTRIBUTION WIDTH 18.2 % (9.6-15.2)
[2020-10-18 07:03] LABS: MD YES
[2020-10-18 07:07] LABS: ANISOCYTOSIS 1+; BAND#(MANUAL) 0.04 x10^3/uL; BANDS%(MANUAL) 3 % (0-7); LYMPH#(MANUAL) 0.19 x10^3/uL (1-3.4); LYMPHS% (MANUAL) 16 % (22-44); MONOS#(MANUAL) 0.01 x10^3/uL (0.3-2.7); MONOS% (MANUAL) 1 % (2-9); SEG#(MANUAL) 0.96 x10^3/uL (1.8-6.8); SEGS% (MANUAL) 80 % (42-75)
[2020-10-18 07:08] LABS: <PLATELET ESTIMATE> DECREASED; <PLT MORPHOLOGY> NORMAL PLT MORPH
[2020-10-18 07:09] LABS: TOXIC GRAN 1+
[2020-10-18 08:49] LABS: INTERNATIONAL NORMALIZED RATIO 1.6 (0.93-1.1)
[2020-10-18] MEDS ORDERED: HYDROCORTISONE 100 MG INJ. IVPush ONE (09:00)
[2020-10-18] MEDS: MIDODRINE 5 MG TABLET PO SCH ×3 (09:16→21:30)
[2020-10-18] MEDS: TBO-FILGRASTIM 480 MCG/0.8 ML SQ SCH (09:16)
[2020-10-18] MEDS: OXYBUTYNIN CHLORIDE 5 MG TABLET PO SCH ×2 (09:16→09:21)
[2020-10-18] MEDS ORDERED: PHYTONADIONE 10 MG/ML, 1ML SQ ONE (11:30)
[2020-10-18 15:10] LABS: MEAN CORPUSCULAR HEMOGLOBIN 27.7 pg (27.0-34.8); MEAN CORPUSCULAR HGB CONC 33.2 g/dL (32.4-35.8); MEAN PLATELET VOLUME 7.1 fL (7.4-10.4); PLATELET COUNT 73 x10^3/uL (130-400); RED BLOOD COUNT 2.64 x10^6/uL (3.82-5.3); RED CELL DISTRIBUTION WIDTH 18.6 % (9.6-15.2)
[2020-10-18 15:15] LABS: MD YES
[2020-10-18 15:27] LABS: INTERNATIONAL NORMALIZED RATIO 1.39 (0.93-1.1); PROTHROMBIN TIME 14.8 Seconds (9.6-11.5)
[2020-10-18] MEDS ORDERED: FLUMAZENIL 0.1 MG/1 ML, 5ML ONE (15:56)
[2020-10-18] MEDS ORDERED: FENTANYL PF 100 MCG/2ML ONE (15:56)
[2020-10-18] MEDS ORDERED: NALOXONE 1 MG/ML, 2ML ONE (15:56)
[2020-10-18] MEDS ORDERED: MIDAZOLAM 1 MG/ML, 5ML ONE ×2 (15:56)
[2020-10-18 16:01] LABS: BAND#(MANUAL) 0.08 x10^3/uL; BANDS%(MANUAL) 8 % (0-7); EOS#(MANUAL) 0.03 x10^3/uL (0.0-0.4); EOS% (MANUAL) 3 % (1-7); LYMPH#(MANUAL) 0.13 x10^3/uL (1-3.4); LYMPHS% (MANUAL) 13 % (22-44); REACTIVE LYMPHS # (MANUAL) 0.01 x10^3/uL (0-0); REACTIVE LYMPHS % (MANUAL) 1 % (0-0); SEG#(MANUAL) 0.75 x10^3/uL (1.8-6.8); SEGS% (MANUAL) 75 % (42-75)
[2020-10-18 16:07] LABS: <RBC MORPHOLOGY> NORMAL
[2020-10-18 16:08] LABS: <PLATELET ESTIMATE> DECREASED; <PLT MORPHOLOGY> NORMAL PLT MORPH
[2020-10-18] MEDS ORDERED: LIDOCAINE 1%, 20ML ONE (16:15)
[2020-10-18] MEDS: NICOTINE 7 MG/24 HR PATCH.TD24 TD SCH (17:51)
[2020-10-18] MEDS: ERTAPENEM 0.5 GM in SODIUM CHLORIDE 0.9% 50 ML IV SCH (17:51)
[2020-10-18] MEDS ORDERED: VISIPAQUE 270 MG/ML, 50ML BOTTLE ONE (17:54)
[2020-10-19 03:16] LABS: MEAN CORPUSCULAR HEMOGLOBIN 28.6 pg (27.0-34.8); MEAN CORPUSCULAR HGB CONC 34.3 g/dL (32.4-35.8); MEAN PLATELET VOLUME 6.9 fL (7.4-10.4); PLATELET COUNT 57 x10^3/uL (130-400); RED BLOOD COUNT 2.88 x10^6/uL (3.82-5.3); RED CELL DISTRIBUTION WIDTH 17.3 % (9.6-15.2)
[2020-10-19 03:17] VITALS: BP 98/58
[2020-10-19 03:22] LABS: ANION GAP 7 mmol/L (5-15); CALCIUM 7.3 mg/dL (8.5-10.1); CHLORIDE 105 mmol/L (98-107); CREATININE 3.14 mg/dL (0.55-1.02)
[2020-10-19 03:44] LABS: MD YES
[2020-10-19 03:52] LABS: ANISOCYTOSIS 1+; BAND#(MANUAL) 0.03 x10^3/uL; BANDS%(MANUAL) 2 % (0-7); LYMPH#(MANUAL) 0.33 x10^3/uL (1-3.4); LYMPHS% (MANUAL) 22 % (22-44); MONOS#(MANUAL) 0.05 x10^3/uL (0.3-2.7); MONOS% (MANUAL) 3 % (2-9); SEGS% (MANUAL) 73 % (42-75)
[2020-10-19 03:53] LABS: <PLATELET ESTIMATE> DECREASED; HYPOCHROMIA 1+; MICROCYTOSIS 1+; SMALL PLATELETS 1+; TARGET CELLS 1+
[2020-10-19] MEDS: HYDROmorphone PCA 30 MG/30 ML IV PRN (06:07)
[2020-10-19 07:00] VITALS: BP 104/63
[2020-10-19] MEDS: SODIUM BICARBONATE 8.4% 150 MEQ in DEXTROSE 5% 1,000 ML IV SCH (08:12)
[2020-10-19] MEDS: MIDODRINE 5 MG TABLET PO SCH ×3 (08:53→22:03)
[2020-10-19] MEDS: OXYBUTYNIN CHLORIDE 5 MG TABLET PO SCH (08:53)
[2020-10-19] MEDS ORDERED: VANCOMYCIN 1,100 MG in SODIUM CHLORIDE 0.9% 250 ML IV ONE (09:00)
[2020-10-19] MEDS: TBO-FILGRASTIM 480 MCG/0.8 ML SQ SCH (09:09)
[2020-10-19] MEDS: SODIUM CHLORIDE 0.9% 1,000 ML IV SCH (12:27)
[2020-10-19 13:27] VITALS: BP 103/67
[2020-10-19] MEDS ORDERED: HEPARIN 5,000 UNITS/ML, 1ML IV ONE (14:00)
[2020-10-19] MEDS: HEPARIN 25,000 UNITS/250ML PMX 250 ML IV PRN (16:04)
[2020-10-19] MEDS: ERTAPENEM 0.5 GM in SODIUM CHLORIDE 0.9% 50 ML IV SCH (16:17)
[2020-10-19] MEDS: NICOTINE 7 MG/24 HR PATCH.TD24 TD SCH (16:17)
[2020-10-19] MEDS ORDERED: FENTANYL 75 MCG PATCH TD SCH (16:30)
[2020-10-19] MEDS: FENTANYL 25 MCG PATCH TD SCH (16:36)
[2020-10-19 19:22] VITALS: BP 105/64
[2020-10-20 02:59] VITALS: BP 94/60
[2020-10-20 06:40] LABS: MEAN CORPUSCULAR HEMOGLOBIN 28.3 pg (27.0-34.8); MEAN CORPUSCULAR HGB CONC 33.7 g/dL (32.4-35.8); MEAN PLATELET VOLUME 7.6 fL (7.4-10.4); PLATELET COUNT 63 x10^3/uL (130-400); RED BLOOD COUNT 2.91 x10^6/uL (3.82-5.3); RED CELL DISTRIBUTION WIDTH 17.4 % (9.6-15.2)
[2020-10-20 06:50] LABS: ANION GAP 8 mmol/L (5-15); CALCIUM 7.6 mg/dL (8.5-10.1); CHLORIDE 110 mmol/L (98-107); CREATININE 1.35 mg/dL (0.55-1.02)
[2020-10-20 07:00] LABS: MD YES
[2020-10-20 07:09] LABS: ANISOCYTOSIS 1+; BAND#(MANUAL) 0.02 x10^3/uL; BANDS%(MANUAL) 2 % (0-7); BASOS#(MANUAL) 0.01 x10^3/uL (0-0.1); BASOS% (MANUAL) 1 % (0-1); EOS#(MANUAL) 0.01 x10^3/uL (0.0-0.4); EOS% (MANUAL) 1 % (1-7); LYMPH#(MANUAL) 0.54 x10^3/uL (1-3.4); LYMPHS% (MANUAL) 68 % (22-44); MONOS#(MANUAL) 0.05 x10^3/uL (0.3-2.7); MONOS% (MANUAL) 6 % (2-9); SEG#(MANUAL) 0.18 x10^3/uL (1.8-6.8); SEGS% (MANUAL) 22 % (42-75)
[2020-10-20 07:10] LABS: <PLATELET ESTIMATE> DECREASED; <PLT MORPHOLOGY> NORMAL PLT MORPH; HYPOCHROMIA 1+
[2020-10-20 07:15] VITALS: BP 93/57
[2020-10-20] MEDS ORDERED: FAMOTIDINE 20 MG TABLET PO SCH (09:00)
[2020-10-20] MEDS: SODIUM CHLORIDE 0.9% 1,000 ML IV SCH (09:17)
[2020-10-20] MEDS ORDERED: FAMOTIDINE 40 MG TABLET ONE (09:52)
[2020-10-20] MEDS: MAGNESIUM HYDROXIDE 8%, 30ML UDC PO SCH ×2 (09:56→21:00)
[2020-10-20] MEDS: MIDODRINE 5 MG TABLET PO SCH ×3 (09:57→22:12)
[2020-10-20] MEDS: OXYBUTYNIN CHLORIDE 5 MG TABLET PO SCH (09:57)
[2020-10-20] MEDS: TBO-FILGRASTIM 480 MCG/0.8 ML SQ SCH (09:58)
[2020-10-20 12:25] VITALS: BP 103/70
[2020-10-20] MEDS: ERTAPENEM 1 GM in SODIUM CHLORIDE 0.9% 50 ML IV SCH (13:47)
[2020-10-20] MEDS: OXYcodone IR 5MG TABLET PO PRN ×2 (13:48→14:16)
[2020-10-20] MEDS: ONDANSETRON 2MG/ML, 2ML IVPush PRN (14:55)
[2020-10-20] MEDS: HEPARIN 25,000 UNITS/250ML PMX 250 ML IV PRN (15:27)
[2020-10-20] MEDS ORDERED: FENTANYL REMOVE PATCH NOTE XX SCH (16:30)
[2020-10-20] MEDS: DOCUSATE 100 MG CAPSULE PO PRN (17:07)
[2020-10-20] MEDS: NICOTINE 7 MG/24 HR PATCH.TD24 TD SCH (17:08)
[2020-10-20 18:55] VITALS: BP 107/66
[2020-10-20] MEDS: FAMOTIDINE 20 MG TABLET PO SCH (22:13)
[2020-10-21 01:08] VITALS: BP 99/60
[2020-10-21] MEDS: OXYcodone IR 5MG TABLET PO PRN ×4 (03:17→21:58)
[2020-10-21] MEDS: SODIUM CHLORIDE 0.9% 1,000 ML IV SCH ×2 (03:18→21:28)
[2020-10-21 05:29] LABS: ANION GAP 8 mmol/L (5-15); CHLORIDE 114 mmol/L (98-107); CREATININE 1.05 mg/dL (0.55-1.02); MEAN CORPUSCULAR HEMOGLOBIN 28.8 pg (27.0-34.8); MEAN CORPUSCULAR HGB CONC 34.2 g/dL (32.4-35.8); MEAN PLATELET VOLUME 7.7 fL (7.4-10.4); PLATELET COUNT 88 x10^3/uL (130-400); RED BLOOD COUNT 2.93 x10^6/uL (3.82-5.3); RED CELL DISTRIBUTION WIDTH 17.2 % (9.6-15.2)
[2020-10-21 05:36] LABS: MD YES
[2020-10-21 06:21] LABS: BASOS#(MANUAL) 0.01 x10^3/uL (0-0.1); BASOS% (MANUAL) 1 % (0-1); LYMPH#(MANUAL) 0.38 x10^3/uL (1-3.4); LYMPHS% (MANUAL) 76 % (22-44); MONOS#(MANUAL) 0.08 x10^3/uL (0.3-2.7); MONOS% (MANUAL) 15 % (2-9); SEG#(MANUAL) 0.04 x10^3/uL (1.8-6.8); SEGS% (MANUAL) 8 % (42-75)
[2020-10-21 06:22] LABS: ANISOCYTOSIS 1+
[2020-10-21 06:24] LABS: <PLATELET ESTIMATE> DECREASED; <PLT MORPHOLOGY> NORMAL PLT MORPH
[2020-10-21 07:08] VITALS: BP 104/70
[2020-10-21] MEDS: ONDANSETRON 2MG/ML, 2ML IVPush PRN ×3 (07:54→23:28)
[2020-10-21 08:57] LABS: ALBUMIN 1.6 g/dL (3.4-5.0)
[2020-10-21] MEDS: FAMOTIDINE 20 MG TABLET PO SCH ×2 (09:00→20:20)
[2020-10-21] MEDS: MAGNESIUM HYDROXIDE 8%, 30ML UDC PO SCH ×2 (09:00→20:20)
[2020-10-21 09:02] LABS: BILIRUBIN, DIRECT 0.9 mg/dL (0.1-0.2); BILIRUBIN,INDIRECT 0.5 mg/dL (0.0-2.0); BILIRUBIN,TOTAL 1.4 mg/dL (0.2-1.0); TOTAL PROTEIN 4.9 g/dL (6.4-8.2)
[2020-10-21] MEDS ORDERED: FAMOTIDINE 40 MG TABLET ONE (09:51)
[2020-10-21] MEDS: OXYBUTYNIN CHLORIDE 5 MG TABLET PO SCH (10:00)
[2020-10-21] MEDS: TBO-FILGRASTIM 480 MCG/0.8 ML SQ SCH (10:00)
[2020-10-21] MEDS: DOCUSATE 100 MG CAPSULE PO PRN (10:00)
[2020-10-21] MEDS: MIDODRINE 5 MG TABLET PO SCH ×3 (10:00→20:19)
[2020-10-21 13:56] VITALS: BP 107/72
[2020-10-21] MEDS: ERTAPENEM 1 GM in SODIUM CHLORIDE 0.9% 50 ML IV SCH (14:56)
[2020-10-21] MEDS: NICOTINE 7 MG/24 HR PATCH.TD24 TD SCH (18:00)
[2020-10-21 18:33] VITALS: BP 113/77
[2020-10-21] MEDS: HEPARIN 5,000 UNITS/ML, 1ML IV PRN (21:44)
[2020-10-21] MEDS: HEPARIN 25,000 UNITS/250ML PMX 250 ML IV PRN (21:45)
[2020-10-22 01:02] VITALS: BP 119/75
[2020-10-22] MEDS: LORazepam 2 MG/ML, 1ML IVPush PRN (01:45)
[2020-10-22] MEDS: OXYcodone IR 5MG TABLET PO PRN (03:02)
[2020-10-22 07:10] VITALS: BP 107/69
[2020-10-22 07:26] LABS: ALANINE AMINOTRANSFERASE 8 U/L (12-78); ALBUMIN 1.7 g/dL (3.4-5.0); ANION GAP 9 mmol/L (5-15); CALCIUM 7.9 mg/dL (8.5-10.1); CHLORIDE 116 mmol/L (98-107); CREATININE 1.02 mg/dL (0.55-1.02)
[2020-10-22 07:28] LABS: ALKALINE PHOSPHATASE 118 U/L (45-117); BILIRUBIN,TOTAL 1.3 mg/dL (0.2-1.0); TOTAL PROTEIN 4.8 g/dL (6.4-8.2)
[2020-10-22] MEDS: HEPARIN 5,000 UNITS/ML, 1ML IV PRN (07:28)
[2020-10-22 07:29] LABS: MEAN CORPUSCULAR HEMOGLOBIN 28.4 pg (27.0-34.8); MEAN CORPUSCULAR HGB CONC 33.1 g/dL (32.4-35.8); MEAN PLATELET VOLUME 7.8 fL (7.4-10.4); PLATELET COUNT 161 x10^3/uL (130-400); RED BLOOD COUNT 2.99 x10^6/uL (3.82-5.3); RED CELL DISTRIBUTION WIDTH 17.7 % (9.6-15.2)
[2020-10-22 07:35] LABS: MD YES
[2020-10-22 08:02] LABS: ANISOCYTOSIS 1+; BAND#(MANUAL) 0.09 x10^3/uL; BANDS%(MANUAL) 9 % (0-7); EOS#(MANUAL) 0.03 x10^3/uL (0.0-0.4); EOS% (MANUAL) 3 % (1-7); LYMPH#(MANUAL) 0.37 x10^3/uL (1-3.4); LYMPHS% (MANUAL) 37 % (22-44); MONOS#(MANUAL) 0.23 x10^3/uL (0.3-2.7); MONOS% (MANUAL) 23 % (2-9); SEG#(MANUAL) 0.28 x10^3/uL (1.8-6.8); SEGS% (MANUAL) 28 % (42-75)
[2020-10-22 08:03] LABS: <PLATELET ESTIMATE> ADEQUATE; <PLT MORPHOLOGY> NORMAL PLT MORPH
[2020-10-22] MEDS ORDERED: FAMOTIDINE 40 MG TABLET ONE (08:20)
[2020-10-22] MEDS: OXYBUTYNIN CHLORIDE 5 MG TABLET PO SCH (08:26)
[2020-10-22] MEDS: TBO-FILGRASTIM 480 MCG/0.8 ML SQ SCH (08:26)
[2020-10-22] MEDS: MAGNESIUM HYDROXIDE 8%, 30ML UDC PO SCH ×2 (08:27→20:50)
[2020-10-22] MEDS: MIDODRINE 5 MG TABLET PO SCH ×3 (08:27→20:49)
[2020-10-22] MEDS: FAMOTIDINE 20 MG TABLET PO SCH ×2 (08:27→20:48)
[2020-10-22] MEDS: DRONABINOL 5 MG CAPSULE PO SCH ×2 (08:27→20:49)
[2020-10-22] MEDS ORDERED: SODIUM CHLORIDE 0.9%, 500ML IVBOLUS ONE (11:00)
[2020-10-22] MEDS: SODIUM CHLORIDE 0.9% 1,000 ML IV SCH ×2 (11:12→20:50)
[2020-10-22] MEDS: ERTAPENEM 1 GM in SODIUM CHLORIDE 0.9% 50 ML IV SCH (13:40)
[2020-10-22 14:08] VITALS: BP 100/63
[2020-10-22] MEDS ORDERED: FENTANYL REMOVE PATCH NOTE XX SCH (16:29)
[2020-10-22] MEDS: NICOTINE 7 MG/24 HR PATCH.TD24 TD SCH (16:37)
[2020-10-22] MEDS: FENTANYL 25 MCG PATCH TD SCH (16:37)
[2020-10-22] MEDS: HEPARIN 25,000 UNITS/250ML PMX 250 ML IV PRN (17:29)
[2020-10-22 21:05] VITALS: BP 103/68
[2020-10-23 02:00] VITALS: BP 103/65
[2020-10-23 05:02] LABS: MEAN CORPUSCULAR HEMOGLOBIN 28.3 pg (27.0-34.8); MEAN CORPUSCULAR HGB CONC 33.2 g/dL (32.4-35.8); MEAN PLATELET VOLUME 7.9 fL (7.4-10.4); PLATELET COUNT 200 x10^3/uL (130-400); RED BLOOD COUNT 2.76 x10^6/uL (3.82-5.3); RED CELL DISTRIBUTION WIDTH 17.9 % (9.6-15.2)
[2020-10-23 05:09] LABS: ALANINE AMINOTRANSFERASE 8 U/L (12-78); ALBUMIN 1.4 g/dL (3.4-5.0); ANION GAP 10 mmol/L (5-15); CALCIUM 7.4 mg/dL (8.5-10.1); CHLORIDE 116 mmol/L (98-107); CREATININE 0.94 mg/dL (0.55-1.02)
[2020-10-23 05:15] LABS: ALKALINE PHOSPHATASE 108 U/L (45-117); BILIRUBIN,TOTAL 1.1 mg/dL (0.2-1.0); TOTAL PROTEIN 4.5 g/dL (6.4-8.2)
[2020-10-23 06:18] LABS: MD YES
[2020-10-23 06:29] LABS: ANISOCYTOSIS 1+; BAND#(MANUAL) 0.35 x10^3/uL; BANDS%(MANUAL) 6 % (0-7); LYMPH#(MANUAL) 0.59 x10^3/uL (1-3.4); LYMPHS% (MANUAL) 10 % (22-44); MONOS#(MANUAL) 0.12 x10^3/uL (0.3-2.7); MONOS% (MANUAL) 2 % (2-9); SEG#(MANUAL) 4.84 x10^3/uL (1.8-6.8); SEGS% (MANUAL) 82 % (42-75)
[2020-10-23 06:30] LABS: <PLATELET ESTIMATE> ADEQUATE; <PLT MORPHOLOGY> NORMAL PLT MORPH; ROULEAUX 1+
[2020-10-23] MEDS: SODIUM CHLORIDE 0.9% 1,000 ML IV SCH ×2 (08:18→20:37)
[2020-10-23] MEDS: LORazepam 2 MG/ML, 1ML IVPush PRN (08:18)
[2020-10-23 08:53] VITALS: BP 99/66
[2020-10-23] MEDS: OXYBUTYNIN CHLORIDE 5 MG TABLET PO SCH ×2 (10:16→10:22)
[2020-10-23] MEDS: DRONABINOL 5 MG CAPSULE PO SCH ×2 (10:17→20:40)
[2020-10-23] MEDS: FAMOTIDINE 20 MG TABLET PO SCH ×2 (10:17→20:38)
[2020-10-23] MEDS: MIDODRINE 5 MG TABLET PO SCH ×3 (10:17→21:30)
[2020-10-23] MEDS: MAGNESIUM HYDROXIDE 8%, 30ML UDC PO SCH ×2 (10:18→20:41)
[2020-10-23 13:22] VITALS: BP 105/73
[2020-10-23 13:42] VITALS: BP 105/78
[2020-10-23] MEDS: APIXABAN 5 MG TABLET PO SCH ×2 (14:15→20:40)
[2020-10-23] MEDS: ERTAPENEM 1 GM in SODIUM CHLORIDE 0.9% 50 ML IV SCH (14:15)
[2020-10-23 16:29] VITALS: BP 109/72
[2020-10-23] MEDS: NICOTINE 7 MG/24 HR PATCH.TD24 TD SCH (16:47)
[2020-10-23] MEDS: OXYcodone IR 5MG TABLET PO PRN ×2 (16:48→20:40)
[2020-10-23 19:33] VITALS: BP 111/75
[2020-10-24 02:10] VITALS: BP 106/69
[2020-10-24] MEDS: SODIUM CHLORIDE 0.9% 1,000 ML IV SCH ×2 (05:00→13:52)
[2020-10-24 05:20] LABS: HCT (SEDRATE) 28.1 % (34.6-47.8)
[2020-10-24 05:23] LABS: MEAN CORPUSCULAR HEMOGLOBIN 28.6 pg (27.0-34.8); MEAN CORPUSCULAR HGB CONC 33.4 g/dL (32.4-35.8); MEAN PLATELET VOLUME 7.8 fL (7.4-10.4); PLATELET COUNT 239 x10^3/uL (130-400); RED BLOOD COUNT 3.38 x10^6/uL (3.82-5.3); RED CELL DISTRIBUTION WIDTH 16.9 % (9.6-15.2)
[2020-10-24 05:31] LABS: ALBUMIN 1.6 g/dL (3.4-5.0); ANION GAP 11 mmol/L (5-15); CALCIUM 7.6 mg/dL (8.5-10.1); CHLORIDE 116 mmol/L (98-107)
[2020-10-24 05:43] LABS: ALANINE AMINOTRANSFERASE 10 U/L (12-78); ALKALINE PHOSPHATASE 135 U/L (45-117); CREATININE 0.85 mg/dL (0.55-1.02); TOTAL PROTEIN 4.6 g/dL (6.4-8.2)
[2020-10-24 05:46] LABS: MD YES
[2020-10-24 05:49] LABS: BAND#(MANUAL) 0.62 x10^3/uL; BANDS%(MANUAL) 6 % (0-7); LYMPH#(MANUAL) 1.34 x10^3/uL (1-3.4); LYMPHS% (MANUAL) 13 % (22-44); METAMYELOCYTES# (MANUAL) 0.41 x10^3/uL (0-0); METAMYELOCYTES% (MANUAL) 4 % (0-1); MONOS#(MANUAL) 0.82 x10^3/uL (0.3-2.7); MONOS% (MANUAL) 8 % (2-9); MYELOCYTES# (MANUAL) 0.31 x10^3/uL (0-0); MYELOCYTES% (MANUAL) 3 % (0-0); REACTIVE LYMPHS % (MANUAL) 1 % (0-0); SEGS% (MANUAL) 65 % (42-75)
[2020-10-24 05:51] LABS: ANISOCYTOSIS 1+
[2020-10-24 05:52] LABS: OVALOCYTES 1+; POLYCHROMASIA 1+
[2020-10-24 05:54] LABS: MICROCYTOSIS 1+
[2020-10-24 05:55] LABS: TOXIC GRAN 1+
[2020-10-24 05:58] LABS: <PLATELET ESTIMATE> ADEQUATE; <PLT MORPHOLOGY> NORMAL PLT MORPH
[2020-10-24 07:00] VITALS: BP 99/67
[2020-10-24] MEDS: MAGNESIUM HYDROXIDE 8%, 30ML UDC PO SCH (09:24)
[2020-10-24] MEDS: DRONABINOL 5 MG CAPSULE PO SCH (09:24)
[2020-10-24] MEDS: FAMOTIDINE 20 MG TABLET PO SCH (09:25)
[2020-10-24] MEDS: APIXABAN 5 MG TABLET PO SCH (09:25)
[2020-10-24] MEDS: OXYBUTYNIN CHLORIDE 5 MG TABLET PO SCH (09:25)
[2020-10-24] MEDS: MIDODRINE 5 MG TABLET PO SCH (09:26)
[2020-10-24] MEDS ORDERED: FAMO20TA7 PO (11:02)
[2020-10-24] MEDS ORDERED: Dronabinol PO (11:02)
[2020-10-24] MEDS ORDERED: OXYB5TAB10 PO (11:02)
[2020-10-24] MEDS ORDERED: MIDO5TAB9 PO (11:02)
[2020-10-24 13:30] VITALS: BP 106/68
[2020-10-24] MEDS: ERTAPENEM 1 GM in SODIUM CHLORIDE 0.9% 50 ML IV SCH (13:52)
== END 2020-10-24 15:45 | disposition home or self-care (01) | DRG 872 ==
LOC: ED 14:55 → EDIP 15:23 → 4NW 16:15 → DCLOUNGE 10-24 15:40
PROVIDERS: ADMIT Internal Medicine; ATTEND Hospitalist
PROC: 30233K1 Transfusion of Nonautologous Frozen Plasma into Peripheral Vein, Percutaneous Approach (ICD-10-PCS; principal; 2020-10-18)
PROC: 30233N1 Transfusion of Nonautologous Red Blood Cells into Peripheral Vein, Percutaneous Approach (ICD-10-PCS; 2020-10-18)
PROC: 0T9330Z Drainage of Right Kidney Pelvis with Drainage Device, Percutaneous Approach (ICD-10-PCS; 2020-10-18)
PROC: 0T9430Z Drainage of Left Kidney Pelvis with Drainage Device, Percutaneous Approach (ICD-10-PCS; 2020-10-18)
DX: A41.51 Sepsis due to Escherichia coli [E. coli] (principal); C77.9 Secondary and unspecified malignant neoplasm of lymph node, unspecified; C78.00 Secondary malignant neoplasm of unspecified lung; C79.51 Secondary malignant neoplasm of bone; D61.818 Other pancytopenia; D68.59 Other primary thrombophilia; E87.1 Hypo-osmolality and hyponatremia; E87.2 Acidosis; L03.311 Cellulitis of abdominal wall; N13.6 Pyonephrosis; N17.9 Acute kidney failure, unspecified; B96.89 Other specified bacterial agents as the cause of diseases classified elsewhere; C67.9 Malignant neoplasm of bladder, unspecified; D69.59 Other secondary thrombocytopenia; D70.3 Neutropenia due to infection; D70.1 Agranulocytosis secondary to cancer chemotherapy; E87.6 Hypokalemia; E88.09 Other disorders of plasma-protein metabolism, not elsewhere classified; F17.210 Nicotine dependence, cigarettes, uncomplicated; I10 Essential (primary) hypertension; K59.00 Constipation, unspecified; I95.89 Other hypotension; R31.29 Other microscopic hematuria; R50.81 Fever presenting with conditions classified elsewhere; T45.1X5A Adverse effect of antineoplastic and immunosuppressive drugs, initial encounter; Z80.3 Family history of malignant neoplasm of breast; Z80.49 Family history of malignant neoplasm of other genital organs; Z80.8 Family history of malignant neoplasm of other organs or systems; Z83.3 Family history of diabetes mellitus; Z85.51 Personal history of malignant neoplasm of bladder; Z86.711 Personal history of pulmonary embolism; Z86.718 Personal history of other venous thrombosis and embolism; Z93.6 Other artificial openings of urinary tract status; Z79.01 Long term (current) use of anticoagulants
CPT/HCPCS: 36415; 50432; 84145; 96361; 96374; 96375; 99285; J3490; 71045; 74176; 80048; 80053; 80076; 80202; 81001; 82533; 82550; 83605; 83615; 83735; 84100; 84439; 84443; 85025; 85049; 85379; 85384; 85520; 85610; 85651; 85730; 86140; 86850; 86900; 86923; 87040; 87077; 87086; 87186; C1894; G0378; J0696; J1170; J1335; J1644; J2250; J2405; J3010; J3370; J3430; J7070; Q0167; Q9966; C1729; C1769; J1447; J1720; J2060; J2270; J2310; J7030; J7040; J7050; J7120; P9016; P9017

== ENCOUNTER 2020-12-14 14:07 | Emergency (ER) | payer OTHER ==
[~2020-12-14] VITALS: Ht 175.3 cm; Wt 67.4 kg
[~2020-12-14 14:07] MED LIST changes: +Dronabinol PO; +FAMO20TA7 PO; +MIDO5TAB9 PO; +OXYB5TAB10 PO
[2020-12-14 14:12] VITALS: BP 146/76
[2020-12-14] MEDS ORDERED: SODIUM CHLORIDE 0.9%, 500ML IVBOLUS ONE (15:00)
[2020-12-14] MEDS ORDERED: SODIUM CHLORIDE 0.9% 1,000 ML IV ONE (15:00)
[2020-12-14] MEDS ORDERED: SODIUM CHLORIDE FLUSH 10ML SYR IVF ONE (15:00)
[2020-12-14 15:20] LABS: MEAN CORPUSCULAR HEMOGLOBIN 29.7 pg (27.0-34.8); MEAN PLATELET VOLUME 6.3 fL (7.4-10.4); PLATELET COUNT 455 x10^3/uL (130-400); RED BLOOD COUNT 3.13 x10^6/uL (3.82-5.3); RED CELL DISTRIBUTION WIDTH 20.1 % (9.6-15.2)
[2020-12-14 15:33] LABS: ALANINE AMINOTRANSFERASE 8 U/L (12-78); ALBUMIN 2.1 g/dL (3.4-5.0); ANION GAP 8 mmol/L (5-15); CALCIUM 8.4 mg/dL (8.5-10.1); CHLORIDE 105 mmol/L (98-107); CREATININE 0.84 mg/dL (0.55-1.02)
[2020-12-14 15:37] LABS: ALKALINE PHOSPHATASE 80 U/L (45-117); BILIRUBIN,TOTAL 0.3 mg/dL (0.2-1.0); TOTAL PROTEIN 5.6 g/dL (6.4-8.2)
[2020-12-14 15:52] LABS: MD YES
[2020-12-14 15:58] LABS: ANISOCYTOSIS 1+; BAND#(MANUAL) 0.58 x10^3/uL; BANDS%(MANUAL) 11 % (0-7); BASOS#(MANUAL) 0.05 x10^3/uL (0-0.1); BASOS% (MANUAL) 1 % (0-1); EOS#(MANUAL) 0.32 x10^3/uL (0.0-0.4); EOS% (MANUAL) 6 % (1-7); LYMPH#(MANUAL) 1.22 x10^3/uL (1-3.4); LYMPHS% (MANUAL) 23 % (22-44); MICROCYTOSIS 1+; MONOS#(MANUAL) 0.42 x10^3/uL (0.3-2.7); MONOS% (MANUAL) 8 % (2-9); SEGS% (MANUAL) 51 % (42-75)
[2020-12-14 15:59] LABS: HYPOCHROMIA 1+; POLYCHROMASIA 1+
[2020-12-14 16:01] LABS: TOXIC GRAN 1+
[2020-12-14 16:02] LABS: <PLATELET ESTIMATE> INCREASED; <PLT MORPHOLOGY> NORMAL PLT MORPH
== END 2020-12-14 16:49 | disposition home or self-care (01) ==
LOC: ED 16:35
DX: C67.9 Malignant neoplasm of bladder, unspecified (principal); J81.0 Acute pulmonary edema; R00.0 Tachycardia, unspecified; R06.02 Shortness of breath; R06.00 Dyspnea, unspecified; F17.200 Nicotine dependence, unspecified, uncomplicated; Z90.49 Acquired absence of other specified parts of digestive tract; Z85.89 Personal history of malignant neoplasm of other organs and systems; Z79.01 Long term (current) use of anticoagulants; Z51.11 Encounter for antineoplastic chemotherapy; Z86.711 Personal history of pulmonary embolism
CPT/HCPCS: 36415; 71045; 80053; 83880; 85025; 93005; 99285

== ENCOUNTER 2021-01-24 09:26 | Outpatient (CLI) | payer OTHER ==
[2021-01-24] MEDS ORDERED: LIDOCAINE 1%, 10ML ONE (10:38)
== END 2021-01-24 23:59 | disposition home or self-care (01) ==
LOC: RAD 09:26
PROVIDERS: ATTEND Internal Medicine
DX: J90 Pleural effusion, not elsewhere classified (principal); C18.1 Malignant neoplasm of appendix; F17.210 Nicotine dependence, cigarettes, uncomplicated; F12.90 Cannabis use, unspecified, uncomplicated; Z79.899 Other long term (current) drug therapy; Z98.890 Other specified postprocedural states; Z86.711 Personal history of pulmonary embolism; Z72.89 Other problems related to lifestyle; Z79.01 Long term (current) use of anticoagulants
CPT/HCPCS: 32555; 71045; 82945; 83615; 84157; 88112; 88305; 89051; J3490

== ENCOUNTER 2021-01-30 09:52 | Inpatient (IN) | payer OTHER ==
[~2021-01-30] VITALS: Ht 175.3 cm; Wt 70.3 kg
[2021-01-30] MEDS ORDERED: SODIUM CHLORIDE 0.9% 1,000ML IVBOLUS ONE (10:30)
[2021-01-30] MEDS ORDERED: SODIUM CHLORIDE FLUSH 10ML SYR IVF ONE (10:30)
--- NOTE | 2021-01-30 10:35 | NUR ---
PT CAME IN CO SOB. 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 PT RECENTLY HAD A THORANCENTESIS LAST WEEK TO DRAIN FLUID AROUND HER LUNGS. "THIS FEELS SIMILAR." PT WAS FOUND TO BE 72% RA IN TRIAGE BUT HAS BEEN SATTING AROUND 95% ON 6 LITERS. PT RESTING IN [facility]. NAD. IV FLUIDS INFUSING. LABS DRAWN. CONNECTED TO ALL MONITORING EQUIPMENT
[2021-01-30 10:36] LABS: BASOPHILS % (AUTO) 1 % (0-1); EOSINOPHILS % (AUTO) 0 % (1-7); LYMPHOCYTES % (AUTO) 3 % (22-44); MEAN CORPUSCULAR HGB CONC 32.5 g/dL (32.4-35.8); MONOCYTES % (AUTO) 4 % (2-9); NEUTROPHILS % (AUTO) 92 % (42-75); PLATELET COUNT 415 x10^3/uL (130-400); RED CELL DISTRIBUTION WIDTH 17.8 % (9.6-15.2)
[2021-01-30 10:49] LABS: ALANINE AMINOTRANSFERASE 10 U/L (12-78); ALBUMIN 2.3 g/dL (3.4-5.0); ANION GAP 14 mmol/L (5-15); CHLORIDE 92 mmol/L (98-107); CREATININE 1.19 mg/dL (0.55-1.02)
[2021-01-30 10:53] LABS: ALKALINE PHOSPHATASE 206 U/L (45-117); BILIRUBIN,TOTAL 0.5 mg/dL (0.2-1.0); TOTAL PROTEIN 7.2 g/dL (6.4-8.2)
[2021-01-30 11:00] LABS: TROPONIN I 0.275 ng/mL (0.000-0.045)
[2021-01-30] MEDS ORDERED: PIPERACILLIN/TAZO 3.375 GM in DEXTROSE 5% 50 ML IVPB ONE (11:30)
[2021-01-30] MEDS ORDERED: VANCOMYCIN PER PHARMACY MC ONE (11:30)
[2021-01-30] MEDS ORDERED: VANCOMYCIN 1,400 MG in SODIUM CHLORIDE 0.9% 250 ML IV ONE (11:30)
[2021-01-30] MEDS ORDERED: VANCOMYCIN 1,500 MG in SODIUM CHLORIDE 0.9% 250 ML IV ONE (11:30)
[2021-01-30] MEDS: FENTANYL 25 MCG PATCH TD SCH (12:00)
[2021-01-30] MEDS ORDERED: ONDANSETRON 2MG/ML, 2ML IVPush PRN (12:00)
[2021-01-30] MEDS ORDERED: VANCOMYCIN PER PHARMACY MC PRN (12:00)
[2021-01-30] MEDS ORDERED: PHARMACOKINETIC CONSULTATION MC ONE (12:30)
[2021-01-30] MEDS ORDERED: PHARMACOKINETIC MONITORING MC PRN (12:30)
[2021-01-30 13:33] LABS: TROPONIN I 0.257 ng/mL (0.000-0.045)
[2021-01-30 14:00] LABS: C-REACTIVE PROTEIN, QUANT > 19.00 mg/dL (0.02-0.49)
[2021-01-30] MEDS: PIPERACILLIN/TAZO 3.375 GM in DEXTROSE 5% 50 ML IV SCH ×2 (15:43→21:32)
[2021-01-30] MEDS: ACETAMINOPHEN 325 MG TABLET PO PRN (15:44)
[2021-01-30] MEDS: NICOTINE 14MG/24 HR PATCH.TD24 TD SCH (15:44)
[2021-01-30 15:45] VITALS: BP 117/82
[2021-01-30 19:14] LABS: TROPONIN I 0.223 ng/mL (0.000-0.045)
[2021-01-30 19:39] VITALS: BP 108/67
[2021-01-30] MEDS: FAMOTIDINE 20 MG TABLET PO SCH (21:32)
[2021-01-30] MEDS: APIXABAN 5 MG TABLET PO SCH (21:32)
[2021-01-30] MEDS: VANCOMYCIN 1,300 MG in SODIUM CHLORIDE 0.9% 250 ML IV SCH (23:11)
[2021-01-31 00:43] VITALS: BP 125/80
[2021-01-31] MEDS: PIPERACILLIN/TAZO 3.375 GM in DEXTROSE 5% 50 ML IV SCH ×3 (03:54→19:34)
[2021-01-31] MEDS: OXYcodone IR 5MG TABLET PO PRN ×4 (05:29→19:34)
[2021-01-31] MEDS: ACETAMINOPHEN 325 MG TABLET PO PRN ×2 (05:29→19:33)
[2021-01-31 06:05] LABS: ANION GAP 9 mmol/L (5-15); CALCIUM 7.7 mg/dL (8.5-10.1); CHLORIDE 98 mmol/L (98-107)
[2021-01-31 06:06] LABS: CREATININE 1.04 mg/dL (0.55-1.02)
[2021-01-31 06:25] LABS: BASOPHILS % (AUTO) 1 % (0-1); EOSINOPHILS % (AUTO) 3 % (1-7); LYMPHOCYTES % (AUTO) 3 % (22-44); MEAN CORPUSCULAR HEMOGLOBIN 29.9 pg (27.0-34.8); MEAN CORPUSCULAR HGB CONC 32.2 g/dL (32.4-35.8); MEAN PLATELET VOLUME 6.9 fL (7.4-10.4); MONOCYTES % (AUTO) 8 % (2-9); NEUTROPHILS % (AUTO) 85 % (42-75); PLATELET COUNT 354 x10^3/uL (130-400); RED BLOOD COUNT 4.04 x10^6/uL (3.82-5.3); RED CELL DISTRIBUTION WIDTH 17.9 % (9.6-15.2)
[2021-01-31 08:20] VITALS: BP 125/73
[2021-01-31] MEDS ORDERED: OXYBUTYNIN CHLORIDE 5 MG TABLET PO SCH (09:00)
[2021-01-31] MEDS: APIXABAN 5 MG TABLET PO SCH ×2 (09:58→20:45)
[2021-01-31] MEDS: FAMOTIDINE 20 MG TABLET PO SCH ×2 (09:58→20:45)
[2021-01-31] MEDS: VANCOMYCIN 1,300 MG in SODIUM CHLORIDE 0.9% 250 ML IV SCH ×2 (10:04→22:28)
[2021-01-31 12:32] VITALS: BP 111/88
[2021-01-31] MEDS: NICOTINE 14MG/24 HR PATCH.TD24 TD SCH (13:03)
[2021-01-31 20:18] VITALS: BP 124/74
[2021-02-01] MEDS: OXYcodone IR 5MG TABLET PO PRN ×5 (00:31→23:03)
[2021-02-01] MEDS: ACETAMINOPHEN 325 MG TABLET PO PRN ×5 (00:31→23:02)
[2021-02-01 00:40] VITALS: BP 113/75
[2021-02-01] MEDS: PIPERACILLIN/TAZO 3.375 GM in DEXTROSE 5% 50 ML IV SCH ×4 (02:06→20:00)
[2021-02-01 05:30] LABS: ANION GAP 8 mmol/L (5-15); CHLORIDE 96 mmol/L (98-107)
[2021-02-01 05:32] LABS: BASOPHILS % (AUTO) 1 % (0-1); EOSINOPHILS % (AUTO) 3 % (1-7); LYMPHOCYTES % (AUTO) 4 % (22-44); MEAN CORPUSCULAR HEMOGLOBIN 30.3 pg (27.0-34.8); MEAN CORPUSCULAR HGB CONC 32.6 g/dL (32.4-35.8); MEAN PLATELET VOLUME 6.7 fL (7.4-10.4); MONOCYTES % (AUTO) 6 % (2-9); NEUTROPHILS % (AUTO) 86 % (42-75); PLATELET COUNT 380 x10^3/uL (130-400); RED BLOOD COUNT 3.97 x10^6/uL (3.82-5.3); RED CELL DISTRIBUTION WIDTH 17.7 % (9.6-15.2)
[2021-02-01 05:33] LABS: CREATININE 1.08 mg/dL (0.55-1.02)
[2021-02-01 07:55] VITALS: BP 106/55
[2021-02-01] MEDS: FAMOTIDINE 20 MG TABLET PO SCH ×2 (09:19→20:00)
[2021-02-01] MEDS: APIXABAN 5 MG TABLET PO SCH ×2 (09:19→20:00)
[2021-02-01] MEDS: FUROSEMIDE 20 MG/2 ML IV SCH ×2 (09:31→20:00)
[2021-02-01 12:19] VITALS: BP 125/75
[2021-02-01] MEDS: NICOTINE 14MG/24 HR PATCH.TD24 TD SCH (13:38)
[2021-02-01] MEDS: VANCOMYCIN 1,300 MG in SODIUM CHLORIDE 0.9% 250 ML IV SCH (16:00)
[2021-02-01] MEDS ORDERED: MAGNESIUM CITRATE 300ML ORAL SOL PO ONE (18:30)
[2021-02-01 19:56] VITALS: BP 133/89
[2021-02-01] MEDS: MELATONIN 5 MG TABLET PO PRN (23:02)
[2021-02-02 01:09] VITALS: BP 123/85
[2021-02-02] MEDS: PIPERACILLIN/TAZO 3.375 GM in DEXTROSE 5% 50 ML IV SCH ×3 (01:55→18:50)
[2021-02-02] MEDS: OXYcodone IR 5MG TABLET PO PRN ×4 (05:41→21:49)
[2021-02-02] MEDS: ACETAMINOPHEN 325 MG TABLET PO PRN ×4 (05:42→21:50)
[2021-02-02 08:14] VITALS: BP 102/83
[2021-02-02] MEDS: FUROSEMIDE 20 MG/2 ML IV SCH (08:45)
[2021-02-02] MEDS: FAMOTIDINE 20 MG TABLET PO SCH ×2 (08:45→21:50)
[2021-02-02] MEDS: APIXABAN 5 MG TABLET PO SCH ×2 (08:45→19:53)
[2021-02-02] MEDS: SENNA/DOCUSATE TABLET PO SCH ×2 (08:47→21:00)
[2021-02-02] MEDS ORDERED: MAGNESIUM HYDROXIDE 8%, 30ML UDC PO PRN (09:00)
[2021-02-02 09:29] LABS: BASOPHILS % (AUTO) 2 % (0-1); EOSINOPHILS % (AUTO) 2 % (1-7); LYMPHOCYTES % (AUTO) 3 % (22-44); MEAN CORPUSCULAR HEMOGLOBIN 30.3 pg (27.0-34.8); MEAN CORPUSCULAR HGB CONC 32.9 g/dL (32.4-35.8); MEAN PLATELET VOLUME 6.7 fL (7.4-10.4); MONOCYTES % (AUTO) 6 % (2-9); NEUTROPHILS % (AUTO) 87 % (42-75); PLATELET COUNT 402 x10^3/uL (130-400); RED BLOOD COUNT 3.99 x10^6/uL (3.82-5.3); RED CELL DISTRIBUTION WIDTH 18.3 % (9.6-15.2)
[2021-02-02 09:35] LABS: ANION GAP 13 mmol/L (5-15); CALCIUM 8.6 mg/dL (8.5-10.1); CHLORIDE 93 mmol/L (98-107); CREATININE 1.57 mg/dL (0.55-1.02)
[2021-02-02] MEDS: VANCOMYCIN 1,300 MG in SODIUM CHLORIDE 0.9% 250 ML IV SCH (10:22)
[2021-02-02 12:22] VITALS: BP 109/75
[2021-02-02] MEDS: NICOTINE 14MG/24 HR PATCH.TD24 TD SCH (12:24)
[2021-02-02] MEDS: FENTANYL 25 MCG PATCH TD SCH (12:25)
[2021-02-02] MEDS ORDERED: FENTANYL REMOVE PATCH NOTE XX SCH (12:30)
[2021-02-02 19:18] VITALS: BP 117/87
[2021-02-02] MEDS ORDERED: HEPARIN 5,000 UNITS/ML, 1ML IV ONE (21:00)
[2021-02-02] MEDS ORDERED: HEPARIN 25,000 UNITS/250ML PMX 250 ML IV PRN (21:00)
[2021-02-02] MEDS: MELATONIN 5 MG TABLET PO PRN (21:50)
[2021-02-03 00:45] VITALS: BP 110/68
[2021-02-03] MEDS: PIPERACILLIN/TAZO 3.375 GM in DEXTROSE 5% 50 ML IV SCH ×4 (01:23→21:08)
[2021-02-03 06:18] LABS: BASOPHILS % (AUTO) 1 % (0-1); EOSINOPHILS % (AUTO) 0 % (1-7); LYMPHOCYTES % (AUTO) 3 % (22-44); MEAN CORPUSCULAR HEMOGLOBIN 29.6 pg (27.0-34.8); MEAN PLATELET VOLUME 6.6 fL (7.4-10.4); MONOCYTES % (AUTO) 6 % (2-9); NEUTROPHILS % (AUTO) 91 % (42-75); PLATELET COUNT 421 x10^3/uL (130-400); RED BLOOD COUNT 3.74 x10^6/uL (3.82-5.3); RED CELL DISTRIBUTION WIDTH 17.9 % (9.6-15.2)
[2021-02-03 06:24] LABS: ANION GAP 12 mmol/L (5-15); CALCIUM 8.3 mg/dL (8.5-10.1); CHLORIDE 93 mmol/L (98-107)
[2021-02-03 06:26] LABS: CREATININE 2.15 mg/dL (0.55-1.02)
[2021-02-03 07:02] VITALS: BP 89/58
[2021-02-03] MEDS: SENNA/DOCUSATE TABLET PO SCH ×2 (08:23→21:00)
[2021-02-03] MEDS: FAMOTIDINE 20 MG TABLET PO SCH (08:24)
[2021-02-03 10:32] VITALS: BP 109/63
[2021-02-03 14:53] LABS: CHLORIDE,URINE RANDOM 33 mmol/L; POTASSIUM,URINE RANDOM 45 mmol/L; SODIUM,URINE RANDOM 23 mmol/L
[2021-02-03 14:56] LABS: MICROSCOPIC INDICATED
[2021-02-03] MEDS: NICOTINE 14MG/24 HR PATCH.TD24 TD SCH (17:46)
[2021-02-03] MEDS: FUROSEMIDE 40 MG/4 ML IV SCH (18:02)
[2021-02-04] MEDS: PIPERACILLIN/TAZO 3.375 GM in DEXTROSE 5% 50 ML IV SCH (03:03)
[2021-02-04 04:01] LABS: BASOPHILS % (AUTO) 0 % (0-1); EOSINOPHILS % (AUTO) 0 % (1-7); LYMPHOCYTES % (AUTO) 3 % (22-44); MEAN CORPUSCULAR HEMOGLOBIN 29.9 pg (27.0-34.8); MEAN CORPUSCULAR HGB CONC 32.5 g/dL (32.4-35.8); MEAN PLATELET VOLUME 6.8 fL (7.4-10.4); MONOCYTES % (AUTO) 8 % (2-9); NEUTROPHILS % (AUTO) 90 % (42-75); PLATELET COUNT 299 x10^3/uL (130-400); RED CELL DISTRIBUTION WIDTH 17.9 % (9.6-15.2)
[2021-02-04 04:12] LABS: ALANINE AMINOTRANSFERASE 12 U/L (12-78); ALBUMIN 1.8 g/dL (3.4-5.0); ANION GAP 13 mmol/L (5-15); CHLORIDE 93 mmol/L (98-107); CREATININE 2.92 mg/dL (0.55-1.02)
[2021-02-04 04:13] LABS: ALKALINE PHOSPHATASE 170 U/L (45-117); BILIRUBIN,TOTAL 0.6 mg/dL (0.2-1.0); TOTAL PROTEIN 5.6 g/dL (6.4-8.2)
[2021-02-04] MEDS: ACETAMINOPHEN 325 MG TABLET PO PRN (04:56)
[2021-02-04] MEDS: OXYcodone IR 5MG TABLET PO PRN (04:57)
[2021-02-04] MEDS: FUROSEMIDE 40 MG/4 ML IV SCH (07:30)
[2021-02-04] MEDS ORDERED: ALBUMIN HUMAN 25% 100 ML IV ONE (08:30)
[2021-02-04] MEDS ORDERED: FAMOTIDINE 20 MG TABLET PO SCH (09:00)
[2021-02-04] MEDS ORDERED: MORPHINE SULFATE 4 MG/ML, 1ML ONE (10:16)
[2021-02-04] MEDS ORDERED: MORPHINE SULFATE 4 MG/ML, 1ML IVPush PRN (10:30)
[2021-02-04] MEDS ORDERED: SCOPOLAMINE 1MG PATCH TD PRN (10:30)
[2021-02-04] MEDS ORDERED: MORPHINE 30MG/30ML PCA.SYR IV PRN (10:30)
[2021-02-04] MEDS ORDERED: ONDANSETRON 2MG/ML, 2ML IVPush PRN (10:30)
[2021-02-04] MEDS ORDERED: ATROPINE OPHTH SOLN 1%, 5ML PO PRN (10:30)
[2021-02-04] MEDS: LORazepam 2 MG/ML, 1ML IVPush PRN ×2 (11:14→12:00)
== END 2021-02-04 16:03 | disposition expired | DRG 871 ==
LOC: ED 11:43 → ORIP 11:44 → 4NW 12:07 → 4WST 14:18 → CCU 02-03 12:21
PROVIDERS: ADMIT Internal Medicine; ATTEND Internal Medicine
DX: A41.9 Sepsis, unspecified organism (principal); E43 Unspecified severe protein-calorie malnutrition; G93.41 Metabolic encephalopathy; J15.9 Unspecified bacterial pneumonia; J96.01 Acute respiratory failure with hypoxia; N17.0 Acute kidney failure with tubular necrosis; C79.51 Secondary malignant neoplasm of bone; C78.00 Secondary malignant neoplasm of unspecified lung; E87.1 Hypo-osmolality and hyponatremia; I31.3 Pericardial effusion (noninflammatory); J90 Pleural effusion, not elsewhere classified; R64 Cachexia; Z51.5 Encounter for palliative care; C67.9 Malignant neoplasm of bladder, unspecified; D72.810 Lymphocytopenia; F17.210 Nicotine dependence, cigarettes, uncomplicated; I10 Essential (primary) hypertension; N13.9 Obstructive and reflux uropathy, unspecified; Z68.22 Body mass index [BMI] 22.0-22.9, adult; Z20.822 Contact with and (suspected) exposure to COVID-19; Z79.01 Long term (current) use of anticoagulants; Z80.3 Family history of malignant neoplasm of breast; Z80.8 Family history of malignant neoplasm of other organs or systems; Z83.3 Family history of diabetes mellitus; Z85.51 Personal history of malignant neoplasm of bladder; Z86.711 Personal history of pulmonary embolism; Z93.6 Other artificial openings of urinary tract status; Z79.2 Long term (current) use of antibiotics; Z90.49 Acquired absence of other specified parts of digestive tract
CPT/HCPCS: 36415; 71045; 71250; 74176; 76770; 80048; 80053; 80202; 81001; 82436; 82803; 82962; 83605; 83615; 83735; 83935; 84100; 84133; 84300; 84484; 85025; 85379; 85520; 86140; 87040; 87070; 87081; 87205; 93005; 93306; 96361; 96374; G0378; J1644; J1940; J2270; J2405; J2543; J3370; U0005; J2060; J7030; J7050; U0003